=== PATIENT | male | born 1970 | race Caucasian/White ===

== ENCOUNTER 2016-07-14 07:37 | Emergency (ER) | payer BC ==
[2016-07-14 07:48] VITALS: BP 127/83
--- NOTE | 2016-07-14 09:12 | EDM.PDOC ---
ED HPI Trauma - General Chief Complaint: Lower Extremity Injury/Pain Stated Complaint: TOE INJURY Time Seen by Provider: 07/14/16 07:48 Source: Reports: Patient History Limitations: Reports: No limitations - History of Present Illness INITIAL COMMENTS - FREE TEXT/NARRATIVE: The patient presents with left 1st MTP pain. This has been going on for a few days. He said his knee was hurting also but that is better. He has a history of gout but his miloxicam is not working. He did not injure his toe. Occurred When: other (A few days ago) Occurred Where: home Method of Injury: unknown Severity: severe Pain/Injury Location: Reports: lower extremity, left (1st MTP joint) Consciousness: Reports: no loss of consciousness Associated Symptoms: Reports: no other symptoms Allergies/ADRs: Allergies peppermint Allergy (Verified 07/14/16 07:48) Airway Tightness Home Medications: Ambulatory Orders Adalimumab [Humira Pen Crohn-Uc-Hs Starter] 1 pen SUBCUT ASDIRECTED 07/14/16 [ Confirmed 07/14/16] Hydrocodone/Acetaminophen [Hydrocodon-Acetaminophen 5-325] 1 - 2 each PO Q6HR PRN #20 tablet 07/14/16 Meloxicam 7.5 mg PO DAILY 07/14/16 [Confirmed 07/14/16] Prednisone [IJD: predniSONE] 40 mg PO WITHBREAKFAST #10 tab 07/14/16 Past Medical History Musculoskeletal History: Reports: Other (see below) Other Musculoskeletal History: Ankylosing Spondylitis - Past Surgical History GI Surgical History: Reports: Bariatric procedure, Cholecystectomy, Other (see below) Other GI Surgeries/Procedures: gastric bypass 10 years ago Musculoskeletal Surgical History: Reports: None Social & Family History - Tobacco Use Smoking Status *Q: Current Every Day Smoker Years of Tobacco use: 36 Packs/Tins Daily: 0.5 Used Tobacco, but Quit: No Second Hand Smoke Exposure: No - Caffeine Use Caffeine Use: Reports: Coffee - Recreational Drug Use Recreational Drug Use: No Review of Systems - Review of Systems Review Of Systems: See Below Constitutional: Reports: no symptoms Eyes: Reports: no symptoms Ears: Reports: no symptoms Nose: Reports: no symptoms Mouth/Throat: Reports: no symptoms Respiratory: Reports: No Symptoms Cardiovascular: Reports: no symptoms GI/Abdominal: Reports: No symptoms Genitourinary: Reports: no symptoms Musculoskeletal: Reports: other (pain to 1st MTP) Trauma Exam - Physical Exam Exam: See Below Exam Limited By: No limitations General Appearance: Reports: alert, no apparent distress Head: Reports: atraumatic, normocephalic Ears: Reports: normal external exam Nose: Reports: normal inspection Respiratory Exam: Reports: no respiratory distress Extremities: Reports: other (Pain upon palpation, redness and edema to the left 1st MTP. Good sensation and capillary refill distally.) Course - Vital Signs Last Recorded V/S: Last Vital Signs Temp 97.4 F 07/14/16 07:45 Pulse 116 H 07/14/16 07:45 Resp 20 07/14/16 07:45 BP 127/83 07/14/16 07:45 Pulse Ox 97 07/14/16 07:45 - Orders/Labs/Meds Orders: Active Orders 24 hr Category Date Time Status Foot Comp Min 3V Lt [CR] Stat Exams 07/14/16 08:00 Taken Labs: Laboratory Tests 07/14/16 Range/Units 08:16 Uric Acid 9.2 H (3.5-7.2) mg/dL - Re-Assessments/Exams Free Text/Narrative Re-Assessment/Exam: 07/14/16 09:08 His x-ray shows some arthritis to the left 1st MTP joint. His uric acid is 9.2. I will get him on some steroids and some hydrocodone for pain. 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 Take the hydrocodone 1 to 2 pills every 6 hours as needed for pain. Please return if you are worse. - My Orders Last 24 Hours: My Active Orders 07/14/16 08:00 Foot Comp Min 3V Lt [CR] Stat - Assessment/Plan Last 24 Hours: My Active Orders 07/14/16 08:00 Foot Comp Min 3V Lt [CR] Stat
[2016-07-14] MEDS ORDERED: Acetaminophen/HYDROcodone 325-5 MG Tab ONE (09:46)
--- NOTE | 2016-07-15 07:43 | CR ---
Left foot: Four views of the left foot were obtained. Comparison: No previous study. Diffuse soft tissue swelling is identified. Degenerative change is noted within the first MTP joint with articular irregularity, joint space narrowing and mild osteophytes. Small bony density seen off the distal tuft of the first digit felt to be incidental. No acute fracture or other bony abnormality is appreciated. Impression: 1. Degenerative change within the first MTP joint. 2. Soft tissue swelling and other incidental findings. Diagnostic code #2
== END 2016-07-14 09:22 | disposition home or self-care (01) ==
LOC: JD.ED 07:37
DX: M10.472 Other secondary gout, left ankle and foot (principal); F17.210 Nicotine dependence, cigarettes, uncomplicated; Z98.84 Bariatric surgery status; Z90.49 Acquired absence of other specified parts of digestive tract; Z79.899 Other long term (current) drug therapy
CPT/HCPCS: 36415; 73630; 84550; 99284; A9270; 99283

== ENCOUNTER 2016-08-10 18:55 | Emergency (ER) | payer BC ==
[2016-08-10 19:21] VITALS: BP 138/83
--- NOTE | 2016-08-10 19:35 | EDM.PDOC ---
ED HPI LOWER BACK PAIN/INJURY - General Chief Complaint: Back Pain or Injury Stated Complaint: FELL OFF A LADDER Time Seen by Provider: 08/10/16 19:00 Source of Information: Reports: Patient History Limitations: Reports: No limitations - History of Present Illness INITIAL COMMENTS - FREE TEXT/NARRATIVE: This is a 46 year old male. He was about 5 feet up on a ladder cleaning his gutters when he lost his balance and fell off the ladder. He states he believes that his buttocks hit first and he now has increase pain the the lower lumbar area. He took one of his pain pills but now he is having muscle spasms. He has ankylosing spondylitis and has a fuzed cervical spine and partially fuzed lumbar spine. No pain down his legs has been noted. He denies upper back pain or more neck pain. Not hit his head and no LOC. Abrasion on his left lateral ankle and left elbow. No chest or abdomen pain. - Related Data Allergies/ADRs: Allergies Allergy/AdvReac Type Severity Reaction Status Date / Time peppermint Allergy Airway Verified 07/14/16 07:48 Tightness Home Meds: Home Meds Adalimumab [Humira Pen Crohn-Uc-Hs Starter] 1 pen SUBCUT ASDIRECTED 07/14/16 [ History] Hydrocodone/Acetaminophen [Hydrocodon-Acetaminophen 5-325] 1 - 2 each PO Q6HR PRN #20 tablet 07/14/16 [Rx] Hydrocodone/Acetaminophen [Hydrocodon-Acetaminophen 5-325] 1 - 2 each PO Q6HR PRN #5 tablet 07/14/16 [Rx] Meloxicam 7.5 mg PO DAILY 07/14/16 [History] Prednisone [IJD: predniSONE] 40 mg PO WITHBREAKFAST #10 tab 07/14/16 [Rx] Cyclobenzaprine [Flexeril] 10 mg PO TID PRN #20 tablet 08/10/16 [Rx] Hydrocodone/Acetaminophen [Hydrocodon-Acetaminophen 5-325] 1 each PO Q6H PRN # 20 tablet 08/10/16 [Rx] Past Medical History Musculoskeletal History: Reports: Other (see below) Other Musculoskeletal History: Ankylosing Spondylitis - Past Surgical History GI Surgical History: Reports: Bariatric procedure, Cholecystectomy, Other (see below) Other GI Surgeries/Procedures: gastric bypass 10 years ago Musculoskeletal Surgical History: Reports: None Social & Family History - Tobacco Use Smoking Status *Q: Current Every Day Smoker Years of Tobacco use: 36 Packs/Tins Daily: 0.5 Used Tobacco, but Quit: No Second Hand Smoke Exposure: No - Caffeine Use Caffeine Use: Reports: Coffee - Recreational Drug Use Recreational Drug Use: No ED ROS GENERAL - Review of Systems Review Of Systems: See Below Constitutional: Denies: fever, chills HEENT: Reports: No symptoms Respiratory: Reports: No Symptoms Cardiovascular: Reports: No symptoms Endocrine: Reports: no symptoms GI/Abdominal: Reports: No symptoms Musculoskeletal: Reports: other (As per HPI) Skin: Reports: no symptoms Neurological: Reports: No Symptoms Psychiatric: Reports: No symptoms Hematologic/Lymphatic: Reports: no symptoms ED EXAM,LOWER BACK PAIN/INJURY - Physical Exam Exam: See Below Exam Limited By: No limitations General Appearance: alert, WD/WN, mild distress Eye Exam: bilateral eye: normal inspection Ears: normal external exam Nose: normal inspection Throat/Mouth: Normal lips, Normal voice Head: atraumatic, other (No trauma noted to the scalp or face.) Respiratory/Chest: other (Limited ROM due to fuzing but he denies and new pain or discomfort from the fall) Cardiovascular: regular rate, rhythm, no murmur GI/Abdominal: soft. No: tender Back Exam: other (Midline lumbar soreness noted and paraspinal muscle tightness and tenderness noted. The left SI joint is mildly tender but not the right SI joint. Denies buttocks pain.) Extremities: normal inspection, normal range of motion, other (Left elbow slight abrasion and left lateral ankle. Left elbow has limited ROM extension due to previous injury and surgery.) Neurological: alert, normal mood/affect Psychiatric: normal affect, normal mood Skin Exam: Warm, Dry Course - Vital Signs Last Recorded V/S: Last Vital Signs Temp 98.0 F 08/10/16 19:17 Pulse 95 08/10/16 19:17 Resp 16 08/10/16 19:17 BP 138/83 08/10/16 19:17 Pulse Ox 95 08/10/16 19:17 - Orders/Labs/Meds Orders: Active Orders 24 hr Category Date Time Status Lumbar Spine 2 or 3V [CR] Stat Exams 08/10/16 19:29 Taken - Radiology Interpretation Free Text/Narrative:: X-ray of the lumbar spine shows fusion from L2-S1 ankylosing spondylitis I do not see any obvious fractures or fractures of the fusing, no compression fractures noted - Re-Assessments/Exams Free Text/Narrative Re-Assessment/Exam: 08/10/16 20:31 I spoke to the patient regarding the x-ray results. I'll provide something for pain and spasms. He is to follow up with fitter hand Departure - Departure Time of Disposition: 20:31 Disposition: Home, Self-Care 01 Condition: fair Clinical Impression: Lumbar paraspinal muscle spasm, Ankylosing spondylitis lumbar region Lumbar strain Qualifiers: Encounter type: initial encounter Qualified Code(s): S39.012A - Strain of muscle, fascia and tendon of lower back, initial encounter Prescriptions: Cyclobenzaprine [Flexeril] 10 mg PO TID PRN #20 tablet PRN Reason: Spasms Hydrocodone/Acetaminophen [Hydrocodon-Acetaminophen 5-325] 1 each PO Q6H PRN # 20 tablet PRN Reason: Pain Instructions: Muscle Strain, [id number], Back Pain, Adult, [id number] Forms: ED Department Discharge Additional Instructions: Use the medicine for pain and spasms as needed, use ice 20 minutes every couple of hours to the back to help with your back pain after about 2-3 days you can start using some heat as well, gentle activity and gentle movement of the lower back don't just lay in bed or sit in a chair since the back heals by movement, call your fitter hand on Friday in case he wants to see you sooner than your scheduled appointment, return to the ER if needed - My Orders Last 24 Hours: My Active Orders 08/10/16 19:29 Lumbar Spine 2 or 3V [CR] Stat - Assessment/Plan Last 24 Hours: My Active Orders 08/10/16 19:29 Lumbar Spine 2 or 3V [CR] Stat
--- NOTE | 2016-08-12 10:34 | CR ---
Lumbar spine: AP, lateral and coned-down lateral view centered to the lumbosacral junction were obtained. Comparison: No previous study. Disc space narrowing noted at L2-L3, L3-L4, L4-L5 and L5-S1. Disc calcification seen within the L2-L3 through L4-L5 discs. Mild disc space narrowing noted within T10-T11 and T11-T12 as well as posteriorly in T12-L1 and L1-L2. Diffuse osteophytes are seen. No acute fracture or abnormal subluxation is seen. Surgical clips are scattered within the abdomen. Impression: 1. Diffuse degenerative change. Previous abdominal surgery. 2. Nothing acute is identified on three-view lumbar spine study. Diagnostic code #2
== END 2016-08-10 20:59 | disposition home or self-care (01) ==
LOC: JD.ED 18:55
DX: S39.012A Strain of muscle, fascia and tendon of lower back, initial encounter (principal); S50.312A Abrasion of left elbow, initial encounter; S90.512A Abrasion, left ankle, initial encounter; M45.6 Ankylosing spondylitis lumbar region; F17.210 Nicotine dependence, cigarettes, uncomplicated; Z91.09 Other allergy status, other than to drugs and biological substances; Z79.899 Other long term (current) drug therapy; Z98.84 Bariatric surgery status; Z90.49 Acquired absence of other specified parts of digestive tract; W11.XXXA Fall on and from ladder, initial encounter
CPT/HCPCS: 72100; 72100-26; 99283; 99284

== ENCOUNTER 2016-12-29 18:39 | Emergency (ER) | payer BC ==
[2016-12-29 18:47] VITALS: BP 148/96
--- NOTE | 2016-12-29 19:05 | EDM.PDOC ---
ED HPI GENERAL MEDICAL PROBLEM - General Chief Complaint: Lower Extremity Injury/Pain Stated Complaint: FEET SWOLLEN Time Seen by Provider: 12/29/16 18:54 Source of Information: Reports: Patient History Limitations: Reports: No Limitations - History of Present Illness INITIAL COMMENTS - FREE TEXT/NARRATIVE: The patient presents with pain, edema and redness to his right ankle. This started a few days ago. He has a history of gout. He denies any injury and he has no fever or chills. Onset: Gradual Duration: Day(s): Location: Reports: Lower Extremity, Right (ankle) Quality: Reports: Sharp Severity: Severe Improves with: Reports: Immobilization Worsens with: Reports: Movement Associated Symptoms: Reports: No Other Symptoms Right Feet Pain Score (Numeric/FACES): 10 - Related Data Allergies Allergy/AdvReac Type Severity Reaction Status Date / Time peppermint Allergy Airway Verified 07/14/16 07:48 Tightness Home Meds: Home Meds Adalimumab [Humira Pen Crohn-Uc-Hs Starter] 1 pen SUBCUT ASDIRECTED 07/14/16 [ History] Meloxicam 7.5 mg PO DAILY 07/14/16 [History] Cyclobenzaprine [Flexeril] 10 mg PO TID PRN #20 tablet 08/10/16 [Rx] Hydrocodone/Acetaminophen [Hydrocodon-Acetaminophen 5-325] 1 each PO Q6H PRN # 20 tablet 08/10/16 [Rx] Hydrocodone/Acetaminophen [Hydrocodon-Acetaminophen 5-325] 1 - 2 each PO Q6HR PRN #20 tablet 12/29/16 [Rx] Prednisone [IJD: predniSONE] 40 mg PO WITHBREAKFAST #10 tab 12/29/16 [Rx] Past Medical History Musculoskeletal History: Reports: Other (See Below) Other Musculoskeletal History: Ankylosing Spondylitis - Past Surgical History GI Surgical History: Reports: Bariatric Procedure, Cholecystectomy Musculoskeletal Surgical History: Reports: Shoulder Surgery Social & Family History - Tobacco Use Smoking Status *Q: Current Every Day Smoker Years of Tobacco use: 30 Packs/Tins Daily: 1 Used Tobacco, but Quit: No Second Hand Smoke Exposure: No - Caffeine Use Caffeine Use: Reports: Coffee, Soda, Tea - Recreational Drug Use Recreational Drug Use: No Review of Systems - Review of Systems Review Of Systems: See Below Constitutional: Reports: No Symptoms Ears: Reports: No Symptoms Nose: Reports: No Symptoms Mouth/Throat: Reports: No Symptoms Respiratory: Reports: No Symptoms Cardiovascular: Reports: No Symptoms GI/Abdominal: Reports: No Symptoms Genitourinary: Reports: No Symptoms Musculoskeletal: Reports: Other (Right ankle pain and swelling) ED EXAM, GENERAL - Physical Exam Exam: See Below Exam Limited By: No Limitations General Appearance: Alert, No Apparent Distress Ears: Normal External Exam Nose: Normal Inspection Head: Atraumatic, Normocephalic Neck: Normal Inspection Respiratory/Chest: No Respiratory Distress Extremities: Other (Right ankle has mild pain upon palpatin, mild elvin and mild erythema. Good sensation and pulses distally.) Course - Vital Signs Last Recorded V/S: Last Vital Signs Temp 97.6 F 12/29/16 18:46 Pulse 110 H 12/29/16 18:46 Resp 18 12/29/16 18:46 BP 148/96 H 12/29/16 18:46 Pulse Ox 96 12/29/16 18:46 - Re-Assessments/Exams Free Text/Narrative Re-Assessment/Exam: 12/29/16 19:02 The patient has gout. He was put on prednisone and hydrocodone last time and it worked. I will continue the same therapy. Departure - Departure Time of Disposition: 19:05 Disposition: Home, Self-Care 01 Condition: Good Clinical Impression: Gout attack Qualifiers: Gout site: ankle Gout etiology: other secondary cause Laterality: right Qualified Code(s): M10.471 - Other secondary gout, right ankle and foot - Discharge Information Prescriptions: Hydrocodone/Acetaminophen [Hydrocodon-Acetaminophen 5-325] 1 - 2 each PO Q6HR PRN #20 tablet PRN Reason: Pain Prednisone [IJD: predniSONE] 40 mg PO WITHBREAKFAST #10 tab Referrals: Michelle Ron PA [Physician Computer Systems Consultant] - 1 Week Additional Instructions: Take the prednisone 40mgs daily for 5 days. Take the hydrocodone 1 to 2 pills every 6 hours as needed for pain. Please return if you get worse or follow up with Michelle Ron within 1 week.
== END 2016-12-29 19:10 | disposition home or self-care (01) ==
LOC: JD.ED 18:39 → SUPCPDRO 18:39 → JD.ED 19:10
DX: M10.471 Other secondary gout, right ankle and foot (principal); F17.210 Nicotine dependence, cigarettes, uncomplicated
CPT/HCPCS: 99283

== ENCOUNTER 2018-05-25 08:27 | Emergency (ER) | payer BC ==
[2018-05-25] MEDS ORDERED: HYDROmorphone 1 MG/ML Syringe IVPUSH STA (08:53)
[2018-05-25] MEDS ORDERED: Ondansetron 4 MG/2 ML SDV IVPUSH ONE (08:53)
--- NOTE | 2018-05-25 08:56 | EDM.PDOC ---
ED HPI GENERAL MEDICAL PROBLEM - General Chief Complaint: Abdominal Pain Stated Complaint: RT SIDE PAIN Time Seen by Provider: 05/25/18 08:39 Source of Information: Reports: Patient, RN Notes Reviewed History Limitations: Reports: No Limitations - History of Present Illness INITIAL COMMENTS - FREE TEXT/NARRATIVE: The patient states that he developed right lower quadrant abdominal pain around 02:00 this morning, as he was getting up. Initially, the pain was dull, but has become sharp. It does not radiate. He has not identified any modifiers. He has had nausea, but no emesis. No recent fever, constipation, diarrhea, or urinary symptoms. No prior similar symptoms. The patient states that he thought that his pain might be due to constipation, therefore he took 2 laxatives, some prune juice, and his usual medications. The patient's last oral solid food was around 18:00 last night. The patient does not have a PCP. The patient's Manager Online is Dr. Mcdonald (?sp). Treatments PROFESSOR IN FAMILY STUDIES: Reports: Other (see below) Other Treatments PROFESSOR IN FAMILY STUDIES: laxitive with prune juice Right Lower Abdomen Pain Score (Numeric/FACES): 7 - Related Data Allergies Allergy/AdvReac Type Severity Reaction Status Date / Time peppermint Allergy Airway Verified 05/25/18 08:34 Tightness Home Meds: Home Meds Adalimumab [Humira Pen Crohn-Uc-Hs Starter] 1 pen SUBCUT ASDIRECTED 07/14/16 [ History] Meloxicam 7.5 mg PO DAILY 07/14/16 [History] Cyclobenzaprine [Flexeril] 10 mg PO TID PRN #20 tablet 08/10/16 [Rx] B12/Levomefolate Calcium/B-6 [Folbic Rf Tablet] 1 tab PO DAILY 05/25/18 [History ] Ciprofloxacin [Cipro XR] 1 tab PO Q12H #20 tab.er 05/25/18 [Rx] Past Medical History Musculoskeletal History: Reports: Back Pain, Chronic (2 ankylosing spondylitis) Endocrine/Metabolic History: Reports: Obesity/BMI 30+ - Past Surgical History GI Surgical History: Reports: Bariatric Procedure (Gastric bypass 10/27/2006), Cholecystectomy (2007) Musculoskeletal Surgical History: Reports: Other (See Below) (Bilaeral 5th finger pinning. Rt elbow surgery.) Social & Family History - Family History Family Medical History: Noncontributory - Tobacco Use Smoking Status *Q: Current Every Day Smoker Years of Tobacco use: 38 Packs/Tins Daily: 0.5 Packs/Tins Daily Comment: Down from 1 ppd - Caffeine Use Caffeine Use: Reports: Coffee - Alcohol Use Alcohol Use History: Yes Alcohol Use Frequency: Socially - Recreational Drug Use Recreational Drug Use: No - Living Situation & Occupation Living situation: Reports: Single, with Family Occupation: Employed ([employer]) ED ROS GENERAL - Review of Systems Review Of Systems: ROS reveals no pertinent complaints other than HPI. ED EXAM, GI/ABD - Physical Exam Exam: See Below Exam Limited By: No Limitations General Appearance: Alert, WD/WN, No Apparent Distress Eyes: Bilateral: Normal Appearance, EOMI Ears: Normal External Exam, Hearing Grossly Normal Nose: Normal Inspection Throat/Mouth: Normal Inspection, Normal Lips, Normal Voice, No Airway Compromise Head: Atraumatic, Normocephalic Neck: Normal Inspection, Full Range of Motion Respiratory/Chest: No Respiratory Distress, Lungs Clear, Normal Breath Sounds, No Accessory Muscle Use Cardiovascular: Normal Peripheral Pulses, Regular Rate, Rhythm, No Gallop, No JVD, No Murmur, No Rub GI/Abdominal Exam: Soft, No Organomegaly, No Distention, No Abnormal Bruit, No Mass, Tender (Right lower quadrant only. Nontender elsewhere.), Abnormal Bowel Sounds (decreased), Other (Obese) (Male) Exam: Deferred Rectal (Males) Exam: Prostate Normal, Deferred Back Exam: Normal Inspection, Full Range of Motion. No: CVA Tenderness (L), CVA Tenderness (R) Extremities: Normal Inspection, Normal Range of Motion, No Pedal Edema, Normal Capillary Refill Neurological: Alert, Oriented, Normal Cognition, No Motor/Sensory Deficits Psychiatric: Normal Affect Skin Exam: Warm, Dry, Intact, Normal Color, No Rash Course - Vital Signs Last Recorded V/S: Last Vital Signs Temp 36.6 C 05/25/18 08:39 Pulse 72 05/25/18 11:24 Resp 16 05/25/18 11:24 BP 141/91 H 05/25/18 11:24 Pulse Ox 99 05/25/18 11:24 - Orders/Labs/Meds Labs: Laboratory Tests 05/25/18 05/25/18 05/25/18 Range/Units 08:55 08:57 08:57 WBC 14.44 H (4.23-9.07) K/mm3 RBC 4.59 L (4.63-6.08) M/mm3 Hgb 14.9 (13.7-17.5) gm/L Hct 45.8 (40.1-51.0) % MCV 99.8 H (79.0-92.2) fl MCH 32.5 H (25.7-32.2) pg MCHC 32.5 (32.2-35.5) g/dl RDW Std Deviation 47.3 H (35.1-43.9) fL Plt Count 380 H (163-337) K/mm3 MPV 8.5 L (9.4-12.3) fl Neutrophils % (Manual) 80 H (40-60) % Band Neutrophils % 0 (0-10) % Lymphocytes % (Manual) 16 L (20-40) % Atypical Lymphs % 0 % Monocytes % (Manual) 3 (2-10) % Eosinophils % (Manual) 1 (0.8-7.0) % Basophils % (Manual) 0 L (0.2-1.2) Toxic Granulation 1+ slight Platelet Estimate Adequate Plt Morphology Comment Normal Polychromasia 1+ slight Macrocytosis Few RBC Morph Comment Not Reportable Sodium 140 (136-145) mEq/L Potassium 3.9 (3.5-5.1) mEq/L Chloride 103 (98-107) mEq/L Carbon Dioxide 30 (21-32) mEq/L Anion Gap 10.9 (5-15) BUN 10 (7-18) mg/dL Creatinine 1.0 (0.7-1.3) mg/dL Est Cr Clr Drug Dosing 88.38 mL/min Estimated GFR (MDRD) > 60 (>60) mL/min BUN/Creatinine Ratio 10.0 L (14-18) Glucose 117 H (74-106) mg/dL Calcium 9.4 (8.5-10.1) mg/dL Total Bilirubin 0.6 (0.2-1.0) mg/dL AST 44 H (15-37) U/L ALT 83 H (16-63) U/L Alkaline Phosphatase 89 (46-116) U/L Total Protein 8.1 (6.4-8.2) g/dl Albumin 2.7 L (3.4-5.0) g/dl Globulin 5.4 gm/dL Albumin/Globulin Ratio 0.5 L (1-2) Urine Color Yellow (Yellow) Urine Appearance Clear (Clear) Urine pH 6.5 (5.0-8.0) Ur Specific [place] 1.015 (1.005-1.030) Urine Protein 1+ H (Negative) Urine Glucose (UA) Negative (Negative) Urine Ketones Negative (Negative) Urine Occult Blood 1+ H (Negative) Urine Nitrite Positive H (Negative) Urine Bilirubin Negative (Negative) Urine Urobilinogen 0.2 (0.2-1.0) Ur Leukocyte Esterase 2+ H (Negative) Urine RBC 5-10 H (0-5) /hpf Urine WBC 20-30 H (0-5) /hpf Urine WBC Clumps Few (NOT SEEN) /hpf Ur Epithelial Cells 0-5 (0-5) /hpf Urine Bacteria Moderate H (FEW) /hpf Urine Mucus Not seen (FEW) /hpf Meds: Medications Discontinued Medications Generic Name Dose Route Start Last Admin Trade Name Freq PRN Reason Stop Dose Admin Diatrizoate Meglum/Diatrizoate Sod 120 ml 05/25/18 09:17 05/25/18 10:14 Gastrografin 37% PO 05/25/18 09:18 90 ml ONETIME ONE Administration Hydromorphone HCl 1 mg 05/25/18 08:53 05/25/18 11:03 Dilaudid IVPUSH 05/25/18 08:54 Not Given ONETIME STA Sodium Chloride 1,000 mls @ 150 mls/hr 05/25/18 09:00 05/25/18 09:15 Normal Saline IV 150 mls/hr ASDIRECTED DAVID Administration Iopamidol 100 ml 05/25/18 09:17 05/25/18 10:14 Isovue-300 (61%) IVPUSH 05/25/18 09:18 100 ml ONETIME ONE Administration Ondansetron HCl 4 mg 05/25/18 08:53 05/25/18 09:15 Zofran IVPUSH 05/25/18 08:54 4 mg ONETIME ONE Administration Sodium Chloride 10 ml 05/25/18 09:17 05/25/18 10:14 Saline Flush FLUSH 10 ml ONETIME PRN Administration IV FLUSH - Re-Assessments/Exams Free Text/Narrative Re-Assessment/Exam: 05/25/18 08:55 Given the location of the patient's pain and tenderness, appendicitis is of concern. I have ordered blood work, a urinalysis, and a CT scan of the abdomen and pelvis with oral and IV contrast. In the meantime, the patient will receive IV Dilaudid, IV Zofran, and IV fluid. 05/25/18 10:50 CT of the abdomen and pelvis with oral and IV contrast is read by Dr. Mcgill as: 1. Inflammatory change around a cyst located posterolateral to the mid right kidney. As mentioned above, findings could represent rupture of the renal cyst with surrounding inflammatory change. Differential also includes pyelonephritis around this cyst. 2. Other incidental cysts are seen within both kidneys as well as liver. 3. Other incidental findings as noted above. 05/25/18 11:02 Test results discussed with the patient. The patient's urinalysis is consistent with a UTI. A urine culture has been ordered. In concert with his CT findings, it appears that the patient has right-sided pyelonephritis. The patient would prefer to start on less expensive oral ciprofloxacin every 12 hours, as opposed to more expensive Levaquin once daily. A prescription will be sent to the [facility]. I will refer him to Dr. Mayela Dacosta, to follow-up this coming , 05/28/2018, in order to check on the urine culture results , to make sure that he is on the correct antibiotic. In the meantime, I would like the patient to stay adequately hydrated, and he has been instructed to return to the ED, should his symptoms worsen. The patient will be provided with a note for work for today. Departure - Departure Time of Disposition: 11:04 Disposition: Home, Self-Care 01 Condition: Fair Clinical Impression: Pyelonephritis, acute - Discharge Information *PRESCRIPTION DRUG MONITORING PROGRAM REVIEWED*: Not Applicable *COPY OF PRESCRIPTION DRUG MONITORING REPORT IN PATIENT AFSHIN: Not Applicable Prescriptions: Ciprofloxacin [Cipro XR] 1 tab PO Q12H #20 tab.er Instructions: Pyelonephritis, Adult, [id number] Referrals: Mayela Dacosta MD [Physician] - PCP,None [Primary Care Provider] - Forms: ED Department Discharge, ED Return to Work/School Form Additional Instructions: You were seen in the emergency room for lower right abdominal pain and nausea. Workup in the ER included blood work, a urinalysis, and a CT scan of your abdomen and pelvis with oral and IV contrast. Your workup found that you have an infection in your right kidney, a condition known as pyelonephritis. A prescription for the antibiotic ciprofloxacin has been sent to the [facility], located at [address] [place] [address]. Take one tablet of ciprofloxacin every 12 hours, starting as soon as possible, as prescribed. Finish the entire prescription unless told otherwise by a doctor. Stay adequately hydrated. It does not really matter what kind of fluid you drink. Follow-up with Dr. Mayela Dacosta, or one of the other providers in the clinic, this coming , 05/28/2018, to check on your urine culture results, to make sure that you are on the correct antibiotic. A note for work has been provided to you. If any other problems, including worsening pain, or the development of fever or vomiting, please do not hesitate to return to the ER.
[2018-05-25] MEDS ORDERED: Sodium Chloride 0.9% 1,000 ML IV SCH (09:00)
[2018-05-25] MEDS ORDERED: Sodium Chloride 0.9% 10 ML Syringe FLUSH PRN (09:17)
[2018-05-25] MEDS ORDERED: Diatrizoate Meglumine/Diatrizoate Sodium 37% 120 ML Bottle PO ONE (09:17)
[2018-05-25] MEDS ORDERED: Iopamidol 612 MG/ML 100 ML Bottle IVPUSH ONE (09:17)
--- NOTE | 2018-05-25 10:38 | CT ---
CT abdomen and pelvis Technique: Multiple axial sections were obtained from above the dome of the diaphragm inferiorly through the pubic symphysis. Intravenous contrast and oral contrast was utilized. Delayed images also obtained through the abdomen and pelvis. Comparison: No previous abdominal imaging. Findings: Inflammatory change is identified posterolateral to the mid right kidney. This is adjacent to a cyst. Uncertain if this finding represents inflammatory change from rupturing of the cyst or whether this represents pyelonephritis around the cyst. No extravasation of any contrast is seen. Delayed images show contrast throughout the ureters into the bladder. Other scattered cysts are seen within both kidneys. Small low density findings are seen within the liver most likely due to cysts. Largest finding within the liver measures 1.1 cm and has Hounsfield unit unit measurements of a cyst. Spleen appears within normal limits. Visualized lung bases show nothing acute. Slightly prominent adrenal glands are seen most likely incidental. Previous stomach surgery is noted. Surgical clips are seen from prior cholecystectomy. Pancreas is within normal limits. Aorta shows mild atherosclerotic calcification without aneurysm. No retroperitoneal adenopathy or mesenteric abnormalities are seen. Appendix is seen and is normal in size. No pelvic mass or adenopathy is seen. Several surgical clips are seen within the anterior abdominal wall. Bone window settings were reviewed which show diffuse degenerative change within the spine. Impression: 1. Inflammatory change around a cyst located posterolateral to the mid right kidney. As mentioned above, findings could represent rupture of the renal cyst with surrounding inflammatory change. Differential also includes pyelonephritis around this cyst. 2. Other incidental cysts are seen within both kidneys as well as liver. 3. Other incidental findings as noted above. Diagnostic code #3
[2018-05-25 11:24] VITALS: BP 141/91
== END 2018-05-25 11:23 | disposition home or self-care (01) ==
LOC: JD.ED 08:27
DX: N10 Acute pyelonephritis (principal); F17.210 Nicotine dependence, cigarettes, uncomplicated; Z88.8 Allergy status to other drugs, medicaments and biological substances; Z79.899 Other long term (current) drug therapy
CPT/HCPCS: 36415; 74177; 80053; 81001; 85007; 85027; 87086; 87088; 87186; 96361; 96374; 99284; J2405; J7040; Q9963; Q9967

== ENCOUNTER 2018-06-19 08:34 | Emergency (ER) | payer BC ==
[2018-06-19 08:56] VITALS: BP 174/101
[2018-06-19] MEDS ORDERED: Sodium Chloride 0.9% 1,000 ML IV STA (09:03)
[2018-06-19] MEDS ORDERED: Sodium Chloride 0.9% 10 ML Syringe FLUSH PRN (09:03)
[2018-06-19] MEDS ORDERED: Ondansetron 4 MG/2 ML SDV IVPUSH ONE (09:03)
--- NOTE | 2018-06-19 09:28 | EDM.PDOC ---
ED HPI GENERAL MEDICAL PROBLEM - General Chief Complaint: Abdominal Pain Stated Complaint: ABDOMINAL PAIN Time Seen by Provider: 06/19/18 08:52 Source of Information: Reports: Patient History Limitations: Reports: No Limitations - History of Present Illness INITIAL COMMENTS - FREE TEXT/NARRATIVE: The patient presents with lower abdominal pain and flank pain. He was here a couple weeks ago for the same. He was found to have pyelonephritis. He was put on an antibiotic and was doing well until a couple days ago. He started having symptoms again. He denies any dysuria or frequency. He has ankylosing spondylitis and is on Alessia injections. He was found to have some inflammation of the right kidney and a cyst. Pyelonephritis and ruptures cyst were possibilities. His UA showed a UTI so he was diagnosed with a UTI and pyelonephritis. He has nausea and vomiting and as well. He has no cough, congestion, runny nose, chest pain or shortness of breath. Onset: Gradual Duration: Day(s): Location: Reports: Abdomen (and flank pain) Quality: Reports: Sharp Severity: Moderate Improves with: Reports: None Worsens with: Reports: None Associated Symptoms: Reports: Nausea/Vomiting. Denies: Cough, Fever/Chills, Headaches, Shortness of Breath Lower Abdomen Pain Score (Numeric/FACES): 6 - Related Data Allergies Allergy/AdvReac Type Severity Reaction Status Date / Time peppermint Allergy Airway Verified 06/19/18 08:52 Tightness Home Meds: Home Meds Adalimumab [Humira Pen Crohn-Uc-Hs Starter] 1 pen SUBCUT ASDIRECTED 07/14/16 [ History] Meloxicam 7.5 mg PO DAILY 07/14/16 [History] Cyclobenzaprine [Flexeril] 10 mg PO TID PRN #20 tablet 08/10/16 [Rx] B12/Levomefolate Calcium/B-6 [Folbic Rf Tablet] 1 tab PO DAILY 05/25/18 [History ] Allopurinol [Zyloprim] 300 mg PO DAILY 06/19/18 [History] Hydrocodone/Acetaminophen [Hydrocodon-Acetaminophen 5-325] 1 - 2 each PO Q6HR PRN #20 tablet 06/19/18 [Rx] Past Medical History Gastrointestinal History: Reports: Cholelithiasis Musculoskeletal History: Reports: Back Pain, Chronic Other Musculoskeletal History: Ankylosing Spondylitis Endocrine/Metabolic History: Reports: Obesity/BMI 30+ - Past Surgical History GI Surgical History: Reports: Bariatric Procedure, Cholecystectomy Musculoskeletal Surgical History: Reports: Other (See Below) Social & Family History - Family History Family Medical History: Noncontributory - Tobacco Use Smoking Status *Q: Former Smoker Years of Tobacco use: 40 Packs/Tins Daily: 0.7 Used Tobacco, but Quit: No - Caffeine Use Caffeine Use: Reports: Coffee, Soda - Recreational Drug Use Recreational Drug Use: No - Living Situation & Occupation Living situation: Reports: Single, with Family Occupation: Employed ([employer]) ED ROS GENERAL - Review of Systems Review Of Systems: See Below Constitutional: Reports: No Symptoms HEENT: Reports: No Symptoms Respiratory: Reports: No Symptoms Cardiovascular: Reports: No Symptoms Endocrine: Reports: No Symptoms GI/Abdominal: Reports: Abdominal Pain, Nausea, Vomiting : Reports: Flank Pain Musculoskeletal: Reports: Back Pain Skin: Reports: No Symptoms ED EXAM, RENAL/ - Physical Exam Exam: See Below Exam Limited By: No Limitations General Appearance: Alert, No Apparent Distress Ears: Normal External Exam Nose: Normal Inspection Head: Atraumatic, Normocephalic Neck: Normal Inspection Respiratory/Chest: No Respiratory Distress, Lungs Clear, Normal Breath Sounds Cardiovascular: Regular Rate, Rhythm, No Edema, No Murmur GI/Abdominal: Soft, No Organomegaly, No Mass, Tender (Mild tenderness to the right abdomen) Back Exam: CVA Tenderness (R) Extremities: Normal Inspection Neurological: Alert, Oriented, No Motor/Sensory Deficits Course - Vital Signs Last Recorded V/S: Last Vital Signs Temp 98.1 F 06/19/18 08:53 Pulse 103 H 06/19/18 08:53 Resp 16 06/19/18 08:53 BP 174/101 H 06/19/18 08:53 Pulse Ox 95 06/19/18 08:53 - Orders/Labs/Meds Orders: Active Orders 24 hr Category Date Time Status Peripheral IV Care [RC] . DIRECTED Care 06/19/18 09:03 Active Sodium Chloride 0.9% [Saline Flush] Med 06/19/18 09:03 Active 10 ml FLUSH ASDIRECTED PRN ED Antiemetic Medication Reflex [OM.PC] Stat Oth 06/19/18 09:03 Ordered Peripheral IV Insertion Adult [OM.PC] Stat Oth 06/19/18 09:03 Ordered Medication Orders Sodium Chloride (Saline Flush) 10 ml FLUSH ASDIRECTED PRN PRN Reason: Keep Vein Open Last Admin: 06/19/18 09:24 Dose: 10 ml Labs: Laboratory Tests 06/19/18 06/19/18 06/19/18 Range/Units 09:19 09:19 09:50 WBC 5.44 (4.23-9.07) K/mm3 RBC 4.88 (4.63-6.08) M/mm3 Hgb 15.9 (13.7-17.5) gm/L Hct 48.3 (40.1-51.0) % MCV 99.0 H (79.0-92.2) fl MCH 32.6 H (25.7-32.2) pg MCHC 32.9 (32.2-35.5) g/dl RDW Std Deviation 51.4 H (35.1-43.9) fL Plt Count 194 (163-337) K/mm3 MPV 8.9 L (9.4-12.3) fl Neut % (Auto) 60.6 (34.0-67.9) % Lymph % (Auto) 26.3 (21.8-53.1) % [place] % (Auto) 7.9 (5.3-12.2) % Eos % (Auto) 4.6 (0.8-7.0) Baso % (Auto) 0.6 (0.1-1.2) % Neut # (Auto) 3.30 (1.78-5.38) K/mm3 Lymph # (Auto) 1.43 (1.32-3.57) K/mm3 [place] # (Auto) 0.43 (0.30-0.82) K/mm3 Eos # (Auto) 0.25 (0.04-0.54) K/mm3 Baso # (Auto) 0.03 (0.01-0.08) K/mm3 Sodium 142 (136-145) mEq/L Potassium 4.0 (3.5-5.1) mEq/L Chloride 106 (98-107) mEq/L Carbon Dioxide 27 (21-32) mEq/L Anion Gap 13.0 (5-15) BUN 13 (7-18) mg/dL Creatinine 1.0 (0.7-1.3) mg/dL Est Cr Clr Drug Dosing 88.38 mL/min Estimated GFR (MDRD) > 60 (>60) mL/min BUN/Creatinine Ratio 13.0 L (14-18) Glucose 113 H (74-106) mg/dL Calcium 8.9 (8.5-10.1) mg/dL Total Bilirubin 1.1 H (0.2-1.0) mg/dL AST 25 (15-37) U/L ALT 45 (16-63) U/L Alkaline Phosphatase 84 (46-116) U/L C-Reactive Protein 0.3 (<1.0) mg/dL Total Protein 7.8 (6.4-8.2) g/dl Albumin 3.4 (3.4-5.0) g/dl Globulin 4.4 gm/dL Albumin/Globulin Ratio 0.8 L (1-2) Lipase 201 (73-393) U/L Urine Color Yellow (Yellow) Urine Appearance Clear (Clear) Urine pH 6.5 (5.0-8.0) Ur Specific [place] 1.025 (1.005-1.030) Urine Protein 1+ H (Negative) Urine Glucose (UA) Negative (Negative) Urine Ketones Negative (Negative) Urine Occult Blood 1+ H (Negative) Urine Nitrite Negative (Negative) Urine Bilirubin Negative (Negative) Urine Urobilinogen 1.0 (0.2-1.0) Ur Leukocyte Esterase Negative (Negative) Urine RBC 5-10 H (0-5) /hpf Urine WBC 0-5 (0-5) /hpf Ur Epithelial Cells 0-5 (0-5) /hpf Urine Bacteria Not seen (FEW) /hpf Urine Mucus Not seen (FEW) /hpf Meds: Medications Generic Name Dose Route Start Last Admin Trade Name Freq PRN Reason Stop Dose Admin Sodium Chloride 10 ml 06/19/18 09:03 06/19/18 09:24 Saline Flush FLUSH 10 ml ASDIRECTED PRN Administration Keep Vein Open Discontinued Medications Generic Name Dose Route Start Last Admin Trade Name Freq PRN Reason Stop Dose Admin Sodium Chloride 1,000 mls @ 1,000 mls/hr 06/19/18 09:03 06/19/18 09:24 Normal Saline IV 06/19/18 10:02 1,000 mls/hr .BOLUS STA Administration Ondansetron HCl 4 mg 06/19/18 09:03 06/19/18 09:24 Zofran IVPUSH 06/19/18 09:04 4 mg ONETIME ONE Administration - Re-Assessments/Exams Free Text/Narrative Re-Assessment/Exam: 06/19/18 09:30 I ordered an IV NS 1L bolus, zofran 4mg IV, labs and UA. I do not feel I need to do a repeat CT. 06/19/18 12:11 His CBC and CMP look good. His lipase was normal. His UA shows no UTI but he does have blood. I feel I need to do a repeat CT now because I do not have a definitive diagnosis. The CT showed inflammatory change around the right kidney seen on prior CT exam has resolved in the interim from prior study. Multiple nonobstructing renal calculi within both kidneys. Cyst within the right kidney as an incidental note. No ureteral calculi or hydronephrosis is seen. Other incidental findings. Nothing acute is appreciated on noncontrast CT study of the abdomen and pelvis. I am not finding a cause for his pain at this time. This could be related to his chronic pain from his ankylosing spondylitis. Departure - Departure Time of Disposition: 12:25 Disposition: Home, Self-Care 01 Condition: Good Clinical Impression: Flank pain Abdominal pain Qualifiers: Abdominal location: lower abdomen, unspecified Qualified Code(s): R10.30 - Lower abdominal pain, unspecified - Discharge Information *PRESCRIPTION DRUG MONITORING PROGRAM REVIEWED*: No *COPY OF PRESCRIPTION DRUG MONITORING REPORT IN PATIENT ASFHIN: No Prescriptions: Hydrocodone/Acetaminophen [Hydrocodon-Acetaminophen 5-325] 1 - 2 each PO Q6HR PRN #20 tablet PRN Reason: Pain Referrals: PCP,None [Primary Care Provider] - Forms: ED Department Discharge, ED Return to Work/School Form Additional Instructions: Take tylenol or motrin for pain. If that does not help take the hydrocodone. Let your doctor know what has been going on. Please return if you are worse. - My Orders Last 24 Hours: My Active Orders 06/19/18 09:03 Peripheral IV Care [RC] . DIRECTED Sodium Chloride 0.9% [Saline Flush] 10 ml FLUSH ASDIRECTED PRN ED Antiemetic Medication Reflex [OM.PC] Stat Peripheral IV Insertion Adult [OM.PC] Stat - Assessment/Plan Last 24 Hours: My Active Orders 06/19/18 09:03 Peripheral IV Care [RC] . DIRECTED Sodium Chloride 0.9% [Saline Flush] 10 ml FLUSH ASDIRECTED PRN ED Antiemetic Medication Reflex [OM.PC] Stat Peripheral IV Insertion Adult [OM.PC] Stat
--- NOTE | 2018-06-19 11:43 | CT ---
CT abdomen and pelvis Technique: Multiple axial sections were obtained from above the dome of the diaphragm inferiorly through the pubic symphysis. Intravenous and oral contrast not utilized. Study has been performed as a ureteral stone protocol. Comparison: Previous CT abdomen and pelvis exam of 05/25/18. Findings: Multiple renal calculi are seen within both kidneys. Largest stone within the right central kidney measuring about 1.9 cm in size. Calcifications are felt to be fairly stable from previous exam. Inflammatory change seen around the right kidney on prior study has resolved in the interim. Cyst is noted off the right kidney measuring 2.9 cm. No ureteral dilatation or ureteral stone is seen. Visualized lung bases show nothing acute. Small hiatal hernia is noted. Previous gastric surgery is noted. Small cyst is noted within the right lobe of the liver measuring approximately 1.2 cm in size. No additional abnormality is appreciated within the liver. Spleen appears within normal limits. Adrenal glands are somewhat prominent in size appear stable and felt to be incidental. Pancreas is within normal limits. Previous cholecystectomy noted. Abdominal aorta shows atherosclerotic calcification without aneurysm. No retroperitoneal adenopathy or mesenteric abnormalities are seen. Multiple surgical clips are seen within the abdominal wall. Appendix is seen which is normal. No pelvic mass or adenopathy is seen. No free fluid or inflammatory change is seen. Scattered diverticuli are seen within the descending and sigmoid colon without findings of diverticulitis. No free fluid or inflammatory change is seen. Bone window settings were reviewed which show multiple levels of fusion presumably from previous surgery. No acute osseous abnormality is appreciated. Impression: 1. Inflammatory change around the right kidney seen on prior CT exam has resolved in the interim from prior study. 2. Multiple nonobstructing renal calculi within both kidneys. Cyst within the right kidney as an incidental note. 3. No ureteral calculi or hydronephrosis is seen. 4. Other incidental findings. Nothing acute is appreciated on noncontrast CT study of the abdomen and pelvis. Diagnostic code #3
== END 2018-06-19 12:30 | disposition home or self-care (01) ==
LOC: JD.ED 08:34
DX: R10.30 Lower abdominal pain, unspecified (principal); Z87.891 Personal history of nicotine dependence; Z79.899 Other long term (current) drug therapy; Z91.018 Allergy to other foods
CPT/HCPCS: 36415; 74176; 80053; 81001; 83690; 85025; 86140; 96361; 96374; 99284; J2405; J7040

== ENCOUNTER 2019-08-06 07:54 | Emergency (ER) | payer BC, MEDICAID ==
[2019-08-06 08:06] VITALS: BP 125/74; PULSE 111
[2019-08-06] MEDS ORDERED: Sodium Chloride 0.9% 10 ML Syringe FLUSH PRN ×2 (08:18→09:05)
[2019-08-06] MEDS ORDERED: Metoclopramide 10 MG/2 ML SDV IVPUSH ONE (08:18)
[2019-08-06] MEDS ORDERED: HYDROmorphone 1 MG/ML Syringe IVPUSH ONE (08:19)
[2019-08-06] MEDS ORDERED: Sodium Chloride 0.9% 1,000 ML IV SCH (08:30)
[2019-08-06] MEDS ORDERED: Albuterol 6.7 GM Inhaler INH ONE (08:40)
--- NOTE | 2019-08-06 08:45 | EDM.PDOC ---
ED HPI GENERAL MEDICAL PROBLEM - General Chief Complaint: Abdominal Pain Stated Complaint: CONSTIPATION Time Seen by Provider: 08/06/19 08:09 Source of Information: Reports: Patient History Limitations: Reports: No Limitations - History of Present Illness INITIAL COMMENTS - FREE TEXT/NARRATIVE: The patient presents with abdominal pain and constipation. He says he has not had a good bowel movement for about 1 1/2 weeks. He has had some loose stools at times. He has no nausea or vomiting but he has no appetite and he is eating much less. He is drinking plenty of fluids. He still has his appendix. He had pneumonia back in April and was admitted to [facility] in [place] for about 3 weeks. Since then he has had shortness of breath and some fluid in his lungs. He has no fever, chills or cough. He has no chest pain. He has no dysuria or hematuria. Onset: Gradual Duration: Week(s): (1.5) Location: Reports: Abdomen Quality: Reports: Other (cramping) Severity: Moderate Improves with: Reports: None Worsens with: Reports: None Associated Symptoms: Denies: Chest Pain, Cough, Fever/Chills, Headaches, Nausea/ Vomiting, Shortness of Breath Abdomen Pain Score (Numeric/FACES): 4 - Related Data Allergies Allergy/AdvReac Type Severity Reaction Status Date / Time peppermint Allergy Severe Airway Verified 08/06/19 08:06 Tightness Home Meds: Home Meds Meloxicam 7.5 mg PO DAILY 07/14/16 [History] B12/Levomefolate Calcium/B-6 [Folbic Rf Tablet] 1 tab PO DAILY 05/25/18 [History ] Famotidine [Pepcid] 20 mg PO BID 08/06/19 [History] Losartan [Cozaar] 100 mg PO DAILY 08/06/19 [History] Magnesium Oxide [Magnesium] 400 mg PO BID 08/06/19 [History] Potassium Chloride 20 meq PO DAILY #30 tablet.er 08/06/19 [Rx] Tamsulosin HCl [Flomax] 0.4 mg PO DAILY 08/06/19 [History] Past Medical History Cardiovascular History: Reports: Hypertension Gastrointestinal History: Reports: Cholelithiasis Musculoskeletal History: Reports: Back Pain, Chronic Other Musculoskeletal History: Ankylosing Spondylitis Endocrine/Metabolic History: Reports: Obesity/BMI 30+ - Infectious Disease History Infectious Disease History: Reports: Pertussis (Whooping Cough) - Past Surgical History GI Surgical History: Reports: Bariatric Procedure, Cholecystectomy Social & Family History - Family History Family Medical History: Noncontributory - Tobacco Use Smoking Status *Q: Current Every Day Smoker Years of Tobacco use: 39 Packs/Tins Daily: 0.5 - Caffeine Use Caffeine Use: Reports: Coffee, Soda - Recreational Drug Use Recreational Drug Use: No - Living Situation & Occupation Living situation: Reports: Single, with Family Occupation: Employed ([employer]) ED ROS GENERAL - Review of Systems Review Of Systems: See Below Constitutional: Reports: No Symptoms HEENT: Reports: No Symptoms Respiratory: Reports: No Symptoms Cardiovascular: Reports: No Symptoms Endocrine: Reports: No Symptoms GI/Abdominal: Reports: Abdominal Pain, Constipation, Nausea, Vomiting. Denies: Diarrhea : Reports: No Symptoms Musculoskeletal: Reports: No Symptoms ED EXAM, GI/ABD - Physical Exam Exam: See Below Exam Limited By: No Limitations General Appearance: Alert, No Apparent Distress Ears: Normal External Exam Nose: Normal Inspection Head: Atraumatic, Normocephalic Neck: Normal Inspection Respiratory/Chest: No Respiratory Distress, Wheezing (Moderate) Cardiovascular: Regular Rate, Rhythm, No Edema, No Murmur GI/Abdominal Exam: Soft, No Organomegaly, No Mass, Tender (Moderate tenderness to the right lower abdomen) Course - Vital Signs Last Recorded V/S: Last Vital Signs Temp 97.0 F 08/06/19 08:03 Pulse 111 H 08/06/19 08:03 Resp 16 08/06/19 08:03 BP 125/74 08/06/19 08:03 Pulse Ox 85 L 08/06/19 09:09 - Orders/Labs/Meds Orders: Active Orders 24 hr Category Date Time Status Oxygen Therapy, ED [RC] ASDIRECTED Care 08/06/19 09:09 Active Peripheral IV Care [RC] . DIRECTED Care 08/06/19 08:18 Active RT Post Treatment Assessment [RC] Click to Edit Care 08/06/19 08:40 Active RT Pre-Treatment Assessment [RC] Click to Edit Care 08/06/19 08:40 Active Potassium Chloride [KCl 10 MEQ in Water 100 ML] 10 meq Med 08/06/19 09:45 Active Premix Bag 1 bag IV Q1H Sodium Chloride 0.9% [Normal Saline] 1,000 ml Med 08/06/19 08:30 Active IV ASDIRECTED Sodium Chloride 0.9% [Saline Flush] Med 08/06/19 08:18 Active 10 ml FLUSH ASDIRECTED PRN Sodium Chloride 0.9% [Saline Flush] Med 08/06/19 09:05 Active 10 ml FLUSH ONETIME PRN ED Antiemetic Medication Reflex [OM.PC] Stat Ot 08/06/19 08:18 Ordered Peripheral IV Insertion Adult [OM.PC] Stat Ot 08/06/19 08:18 Ordered Medication Orders Sodium Chloride (Normal Saline) 1,000 mls @ 125 mls/hr IV ASDIRECTED DAVID Last Infusion: 08/06/19 10:13 Dose: 300 mls/hr Admin: 08/06/19 08:38 Dose: 125 mls/hr Potassium Chloride 10 meq/ (Premix) 100 mls @ 100 mls/hr IV Q1H DAVID Stop: 08/06/19 11:44 Last Admin: 08/06/19 09:51 Dose: 100 mls/hr Sodium Chloride (Saline Flush) 10 ml FLUSH ASDIRECTED PRN PRN Reason: Keep Vein Open Last Admin: 08/06/19 08:39 Dose: 10 ml Sodium Chloride (Saline Flush) 10 ml FLUSH ONETIME PRN PRN Reason: Keep Vein Open Last Admin: 08/06/19 09:29 Dose: 10 ml Labs: Laboratory Tests 08/06/19 08/06/19 08/06/19 Range/Units 08:35 08:35 09:40 WBC 6.51 (4.23-9.07) K/mm3 RBC 4.53 L (4.63-6.08) M/mm3 Hgb 14.7 (13.7-17.5) gm/dl Hct 42.4 (40.1-51.0) % MCV 93.6 H D (79.0-92.2) fl MCH 32.5 H (25.7-32.2) pg MCHC 34.7 (32.2-35.5) g/dl RDW Std Deviation 57.3 H (35.1-43.9) fL Plt Count 194 (163-337) K/mm3 MPV 10.0 (9.4-12.3) fl Neut % (Auto) 73.4 H (34.0-67.9) % Lymph % (Auto) 16.7 L (21.8-53.1) % Cam[place] % (Auto) 8.1 (5.3-12.2) % Eos % (Auto) 1.1 (0.8-7.0) Baso % (Auto) 0.5 (0.1-1.2) % Neut # (Auto) 4.78 (1.78-5.38) K/mm3 Lymph # (Auto) 1.09 L (1.32-3.57) K/mm3 [place] # (Auto) 0.53 (0.30-0.82) K/mm3 Eos # (Auto) 0.07 (0.04-0.54) K/mm3 Baso # (Auto) 0.03 (0.01-0.08) K/mm3 Sodium 139 (136-145) mEq/L Potassium 2.1 L* D (3.5-5.1) mEq/L Chloride 98 (98-107) mEq/L Carbon Dioxide 21 (21-32) mEq/L Anion Gap 22.1 H (5-15) BUN 26 H (7-18) mg/dL Creatinine 2.4 H D (0.7-1.3) mg/dL Est Cr Clr Drug Dosing 34.04 mL/min Estimated GFR (MDRD) 29 (>60) mL/min BUN/Creatinine Ratio 10.8 L (14-18) Glucose 131 H (74-106) mg/dL Calcium 6.6 L D (8.5-10.1) mg/dL Total Bilirubin 1.6 H (0.2-1.0) mg/dL AST 125 H (15-37) U/L ALT 200 H (16-63) U/L Alkaline Phosphatase 157 H (46-116) U/L Total Protein 6.6 (6.4-8.2) g/dl Albumin 2.5 L (3.4-5.0) g/dl Globulin 4.1 gm/dL Albumin/Globulin Ratio 0.6 L (1-2) Lipase 419 H (73-393) U/L Urine Color Brenda H (Yellow) Urine Appearance Slt cloudy H (Clear) Urine pH 5.5 (5.0-8.0) Ur Specific Hurley 1.025 (1.005-1.030) Urine Protein 2+ H (Negative) Urine Glucose (UA) Negative (Negative) Urine Ketones 1+ H (Negative) Urine Occult Blood 3+ H (Negative) Urine Nitrite Negative (Negative) Urine Bilirubin 3+ H (Negative) Urine Urobilinogen 1.0 (0.2-1.0) Ur Leukocyte Esterase Trace H (Negative) Urine RBC 40-50 H (0-5) /hpf Urine WBC 0-5 (0-5) /hpf Ur Squamous Epith Cells 0-5 (0-5) /hpf Urine Bacteria Not seen (FEW) /hpf Urine Mucus Not seen (FEW) /hpf Meds: Medications Generic Name Dose Route Start Last Admin Trade Name Freq PRN Reason Stop Dose Admin Sodium Chloride 1,000 mls @ 125 mls/hr 08/06/19 08:30 08/06/19 10:13 Normal Saline IV 300 mls/hr ASDIRECTED DAVID Infusion Potassium Chloride 10 meq/ 100 mls @ 100 mls/hr 08/06/19 09:45 08/06/19 09:51 Premix IV 08/06/19 11:44 100 mls/hr Q1H DAVID Administration Sodium Chloride 10 ml 08/06/19 08:18 08/06/19 08:39 Saline Flush FLUSH 10 ml ASDIRECTED PRN Administration Keep Vein Open Sodium Chloride 10 ml 08/06/19 09:05 08/06/19 09:29 Saline Flush FLUSH 10 ml ONETIME PRN Administration Keep Vein Open Discontinued Medications Generic Name Dose Route Start Last Admin Trade Name Freq PRN Reason Stop Dose Admin Albuterol 0 gm 08/06/19 08:40 08/06/19 08:56 Proventil Hfa INH 08/06/19 08:41 2 puff ONETIME ONE Administration Diatrizoate Meglum/Diatrizoate Sod 90 ml 08/06/19 09:29 08/06/19 09:30 Gastrografin 37% PO 08/06/19 09:30 90 ml ONETIME ONE Administration Hydromorphone HCl 1 mg 08/06/19 08:19 08/06/19 08:39 Dilaudid IVPUSH 08/06/19 08:20 1 mg ONETIME ONE Administration Hydromorphone HCl 0.5 mg 08/06/19 10:04 08/06/19 10:11 Dilaudid IVPUSH 08/06/19 10:05 0.5 mg ONETIME ONE Administration Iopamidol 100 ml 08/06/19 09:05 08/06/19 09:29 Isovue-300 (61%) IVPUSH 08/06/19 09:06 100 ml ONETIME ONE Administration Metoclopramide HCl 10 mg 08/06/19 08:18 08/06/19 08:38 Reglan IVPUSH 08/06/19 08:19 10 mg ONETIME ONE Administration - Re-Assessments/Exams Free Text/Narrative Re-Assessment/Exam: 08/06/19 08:44 I ordered an IV NS at 125ml/hr, reglan 10mg IV, dilaudid 1mg IV, labs, UA and a CT of his abdomen and pelvis. 08/06/19 10:45 His CBC looks good. His K was low at 2.1. I ordered 20meq of KCl IV. His creatinine is elevated at 2.4. His GFR is elevated at 29. His glucose is 131. His calcium is 6.6. His total bili is 1.6. His AST is elevated at 125. His ALT is elevated at 200. His alk phos is elevated at 157. His lipase was elevated at 419. His UA is negative for UTI. His CT shows diffuse and severe fatty infiltration within the liver. Liver is diffusely enlarged. Masslike nodule within the inferior right lobe. Uncertain if this represents focal fatty sparing or represents actual liver mass. I believe that this is most likely due to focal fatty sparing. Liver findings are an interval change from previous exam. Bowel wall thickening within the sigmoid colon with differential including localized kyphosis versus muscular thickening from chronic diverticulosis. Other findings believed to be incidental as described above. 08/06/19 11:04 I ordered a CXR and it looked good. The patient had a bowel movement and he feels better. His BP did go down and I gave him a fluid bolus. His BP is better now. I feel he should be admitted. He does not agree and would like to go home. He has calcium at home that he did not take today. I will put him on some potassium. He also has oxygen at home. He can take the inhaler to use at home. Departure - Departure Time of Disposition: 11:10 Disposition: Home, Self-Care 01 Condition: Good Clinical Impression: Hypokalemia, Hypocalcemia, Renal insufficiency Abdominal pain Qualifiers: Abdominal location: lower abdomen, unspecified Qualified Code(s): R10.30 - Lower abdominal pain, unspecified Reactive airway disease Qualifiers: Asthma severity: mild Asthma persistence: intermittent Asthma complication type : with acute exacerbation Qualified Code(s): J45.21 - Mild intermittent asthma with (acute) exacerbation Hypotension Qualifiers: Hypotension type: other hypotension type Qualified Code(s): I95.89 - Other hypotension - Discharge Information *PRESCRIPTION DRUG MONITORING PROGRAM REVIEWED*: Not Applicable *COPY OF PRESCRIPTION DRUG MONITORING REPORT IN PATIENT AFSHIN: Not Applicable Prescriptions: Potassium Chloride 20 meq PO DAILY #30 tablet.er Referrals: Carlos Hoffmann Jr, MD [Primary Care Provider] - 1 Week Forms: ED Department Discharge Additional Instructions: Take your medication as prescribed. Take the potassium daily. Drink plenty of fluids. Use the inhaler 2 puffs every 4 to 6 hours as needed for shortness of breath or wheezing. Use your oxygen as needed. Please return if you are worse. Follow up with your doctor within a week. Sepsis Event Note - Evaluation Sepsis Screening Result: No Definite Risk - Focused Exam Vital Signs: Vital Signs Temp Pulse Resp BP Pulse Ox Pulse Ox Pulse Ox 08/06/19 09:09 85 L 08/06/19 08:57 91 L 08/06/19 08:03 97.0 F 111 H 16 125/74 94 L Date Exam was Performed: 08/06/19 Time Exam was Performed: 11:04 - My Orders Last 24 Hours: My Active Orders 08/06/19 08:18 Peripheral IV Care [RC] . DIRECTED Sodium Chloride 0.9% [Saline Flush] 10 ml FLUSH ASDIRECTED PRN ED Antiemetic Medication Reflex [OM.PC] Stat Peripheral IV Insertion Adult [OM.PC] Stat 08/06/19 08:30 Sodium Chloride 0.9% [Normal Saline] 1,000 ml IV ASDIRECTED 08/06/19 08:40 RT Post Treatment Assessment [RC] Click to Edit RT Pre-Treatment Assessment [RC] Click to Edit 08/06/19 09:05 Sodium Chloride 0.9% [Saline Flush] 10 ml FLUSH ONETIME PRN 08/06/19 09:09 Oxygen Therapy, ED [RC] ASDIRECTED 08/06/19 09:45 Potassium Chloride [KCl 10 MEQ in Water 100 ML] 10 meq Premix Bag 1 bag IV Q1H - Assessment/Plan Last 24 Hours: My Active Orders 08/06/19 08:18 Peripheral IV Care [RC] . DIRECTED Sodium Chloride 0.9% [Saline Flush] 10 ml FLUSH ASDIRECTED PRN ED Antiemetic Medication Reflex [OM.PC] Stat Peripheral IV Insertion Adult [OM.PC] Stat 08/06/19 08:30 Sodium Chloride 0.9% [Normal Saline] 1,000 ml IV ASDIRECTED 08/06/19 08:40 RT Post Treatment Assessment [RC] Click to Edit RT Pre-Treatment Assessment [RC] Click to Edit 08/06/19 09:05 Sodium Chloride 0.9% [Saline Flush] 10 ml FLUSH ONETIME PRN 08/06/19 09:09 Oxygen Therapy, ED [RC] ASDIRECTED 08/06/19 09:45 Potassium Chloride [KCl 10 MEQ in Water 100 ML] 10 meq Premix Bag 1 bag IV Q1H
[2019-08-06] MEDS ORDERED: Iopamidol 612 MG/ML 100 ML Bottle IVPUSH ONE (09:05)
[2019-08-06] MEDS ORDERED: Diatrizoate Meglumine/Diatrizoate Sodium 37% 120 ML Bottle PO ONE (09:29)
[2019-08-06] MEDS: Potassium Chloride 10 MEQ in Premix Bag 1 BAG IV SCH ×2 (09:51→11:06)
--- NOTE | 2019-08-06 09:54 | CT ---
CT abdomen and pelvis Technique: Multiple axial sections were obtained from above the dome of the diaphragm inferiorly through the pubic symphysis. Intravenous and oral contrast was utilize. Comparison: Prior CT abdomen and pelvis study of 06/19/18. Findings: Visualized lung bases show nothing acute. Diffuse and severe fatty infiltration is seen throughout the liver. Liver is diffusely enlarged. Focal masslike density is noted within the right lower lobe of the liver measuring 3.5 cm. Uncertain if this represents neoplastic nodule or represents masslike area of focal fatty sparing. Contrast reflux is noted into the esophagus. Spleen appears normal. Adrenal glands show no nodule. Pancreas appears within normal limits. Surgical clips are noted from prior cholecystectomy. Kidneys show several nonobstructing calculi on both sides. Exophytic cyst is noted within the mid left kidney measuring about 2.5 cm. Smaller presumed cyst is noted within the upper pole of the left kidney measuring about 9 mm in size which is too small to confirm by Hounsfield unit measurements. Aorta shows atherosclerotic change without aneurysm. Atherosclerotic change continues into the iliac vessels. No retroperitoneal adenopathy or mesenteric abnormalities are seen. Diverticuli are seen within the sigmoid colon. Diverticuli noted within portions of the descending colon. Bowel wall thickening is noted within the sigmoid colon. Uncertain if this is due to localized colitis or represents bowel wall thickening from chronic diverticulosis. Appendix not visualized with certainty. Bone window settings were reviewed which shows scattered degenerative change within the spine. Impression: 1. Diffuse and severe fatty infiltration within the liver. Liver is diffusely enlarged. 2. Masslike nodule within the inferior right lobe. Uncertain if this represents focal fatty sparing or represents actual liver mass. I believe that this is most likely due to focal fatty sparing. Liver findings are an interval change from previous exam. 3. Bowel wall thickening within the sigmoid colon with differential including localized kyphosis versus muscular thickening from chronic diverticulosis. 4. Other findings believed to be incidental as described above. Diagnostic code #3 This report was dictated in MDT
[2019-08-06] MEDS ORDERED: HYDROmorphone 0.5 MG/0.5 ML Syringe IVPUSH ONE (10:04)
--- NOTE | 2019-08-06 10:45 | CR ---
Chest: 2 views of the chest were obtained. Comparison: No prior chest imaging is available. Heart size and mediastinum are normal. Lungs show minimal linear density within the left base or lingula compatible with discoid atelectasis or scar. Lungs otherwise are clear. Bony structures are grossly intact. Impression: 1. Finding within the left lower lung or lingula believed to be incidental. 2. Nothing acute is seen. Diagnostic code #2 This report was dictated in MDT
== END 2019-08-06 12:40 | disposition home or self-care (01) ==
LOC: JD.ED 07:54
DX: N28.9 Disorder of kidney and ureter, unspecified (principal); I95.89 Other hypotension; J45.21 Mild intermittent asthma with (acute) exacerbation; E87.6 Hypokalemia; E83.51 Hypocalcemia; I10 Essential (primary) hypertension; E66.9 Obesity, unspecified; F17.210 Nicotine dependence, cigarettes, uncomplicated; Z90.89 Acquired absence of other organs; Z68.41 Body mass index [BMI] 40.0-44.9, adult; Z91.018 Allergy to other foods; Z79.899 Other long term (current) drug therapy
CPT/HCPCS: 36415; 71046; 74177; 80053; 81001; 83690; 85025; 94640; 96361; 96365; 99284; A9270; J1170; J2765; J3480; J7030; Q9963; Q9967

== ENCOUNTER 2019-10-04 10:01 | Emergency (ER) | payer MEDICAID ==
[2019-10-04 10:15] VITALS: BP 120/76; PULSE 105
[2019-10-04] MEDS ORDERED: Metoclopramide 10 MG/2 ML SDV IVPUSH ONE (10:39)
[2019-10-04] MEDS ORDERED: HYDROmorphone 1 MG/ML Syringe IVPUSH ONE ×3 (10:39→14:38)
--- NOTE | 2019-10-04 10:43 | EDM.PDOC ---
ED HPI GENERAL MEDICAL PROBLEM - General Chief Complaint: Abdominal Pain Stated Complaint: ABDOMINAL PAIN Time Seen by Provider: 10/04/19 10:38 Source of Information: Reports: Patient History Limitations: Reports: No Limitations - History of Present Illness INITIAL COMMENTS - FREE TEXT/NARRATIVE: 49-year-old male presents to the ED with diffuse left upper quadrant abdominal cramping colicky pain which radiates towards his left flank. He states he awoke around 0400 hrs. this morning to void and shortly thereafter started to develop cramping left upper quadrant abdominal pain that seemed almost cross over to the right side as well. He states now it seems to be more localized to the left upper quadrant and left flank. He has known renal lithiasis documented on previous CTs of the abdomen. He has cirrhosis of the liver with ascites and is currently on diuretics and medications for this including lactulose 3 times daily. Stools are chronically loose. He does not appreciate a constant need to void. He has not noticed any discoloration of his urine. Associated nausea due to the intensity of the pain but he is not vomited. He has not yet eaten today. Last meal was about 1830 hrs. last night. Onset: Today Onset Date: 10/04/19 Onset Time: 04:00 Duration: Hour(s):, Constant, Other (Constant with a strong colicky component. Currently rates the pain is 7 out of 10.) Location: Reports: Abdomen (Left upper quadrant of the abdomen with slight feeling of pressure sensation left testicle. Pain left flank.) Quality: Reports: Ache, Sharp, Stabbing, Other Severity: Severe (Stent pain with a strong colicky component) Improves with: Reports: None Worsens with: Reports: None Context: Reports: Other. Denies: Activity, Exercise, Lifting, Sick Contact, Trauma Associated Symptoms: Reports: Malaise (Chronically. Niccoli.), Nausea/Vomiting (Cristofer is occurrence after voiding about 0400 hrs. this morning.), Shortness of Breath. Denies: Fever/Chills ( Nausea without any vomiting.), Headaches, Rash, Seizure Treatments OUTREACH LIAISON: Reports: Other (see below) (None.) Bilateral Abdominal Pain Score (Numeric/FACES): 10 Bilateral Flank Pain Score (Numeric/FACES): 10 - Related Data Allergies Allergy/AdvReac Type Severity Reaction Status Date / Time peppermint Allergy Severe Airway Verified 10/04/19 10:15 Tightness Home Meds: Home Meds Cyanocobalamin/Folic AC/Vit B6 [Folbee] 1 tab PO DAILY 10/04/19 [History] Diclofenac Sodium [Diclo Gel] 2 gm TRDERM BID 10/04/19 [History] Famotidine 20 mg PO DAILY 10/04/19 [History] Famotidine [Pepcid] 20 mg PO BID 10/04/19 [History] Fluticasone Furoate [Flonase Sensimist] 2 spray RAY BID 10/04/19 [History] Ketoconazole/Hydrocortisone [Hydrocort 2.5%-Ketoconazole 2%] 1 dose TOP BID [History] Lactulose [Chronulac] 15 ml PO BID 10/04/19 [History] Loperamide [Imodium] 2 mg PO Q4HR 10/04/19 [History] Losartan [Cozaar] 100 mg PO DAILY 10/04/19 [History] Melatonin 3 mg PO BEDTIME 10/04/19 [History] Meloxicam 7.5 mg PO DAILY 10/04/19 [History] Metoclopramide [Reglan] 5 mg PO TID 10/04/19 [History] Mirtazapine 7.5 mg PO DAILY 10/04/19 [History] Ondansetron [Zofran ODT] 4 mg PO TID 10/04/19 [History] Pantoprazole Sodium [Protonix] 20 mg PO DAILY 10/04/19 [History] Potassium Chloride [Klor-Con M20] 20 meq PO DAILY 10/04/19 [History] Rifaximin [Xifaxan] 1,100 mg PO BID 10/04/19 [History] Tamsulosin [Flomax] 0.4 mg PO DAILY 10/04/19 [History] Past Medical History Cardiovascular History: Reports: Hypertension Gastrointestinal History: Reports: Cholelithiasis, Chronic Diarrhea, Cirrhosis (Lactulose. Diagnosed with cirrhosis of the liver approximately a month ago. She finished alcohol treatment rehab 5 days ago.), Other (See Below) Other Gastrointestinal History: liver fx Musculoskeletal History: Reports: Back Pain, Chronic Other Musculoskeletal History: Ankylosing Spondylitis Endocrine/Metabolic History: Reports: Obesity/BMI 30+ - Infectious Disease History Infectious Disease History: Reports: Pertussis (Whooping Cough) - Past Surgical History GI Surgical History: Reports: Bariatric Procedure, Cholecystectomy - History Comment History Comment: And was in alcohol rehab up until a week ago. Social & Family History - Family History Family Medical History: Noncontributory - Tobacco Use Smoking Status *Q: Current Every Day Smoker Years of Tobacco use: 38 Packs/Tins Daily: 0.5 - Caffeine Use Caffeine Use: Reports: Coffee - Recreational Drug Use Recreational Drug Use: No - Living Situation & Occupation Living situation: Reports: Single, with Family Occupation: Employed ([employer]) ED ROS GENERAL - Review of Systems Review Of Systems: See Below Constitutional: Reports: Malaise, Weakness, Fatigue, Decreased Appetite. Denies: Fever, Chills HEENT: Reports: No Symptoms Respiratory: Reports: Shortness of Breath. Denies: Wheezing, Pleuritic Chest Pain, Cough, Sputum, Hemoptysis Cardiovascular: Reports: Dyspnea on Exertion ( Niccoli in both lower extremities), Edema (Times when he gets up.), Lightheadedness. Denies: Chest Pain, Blood Pressure Problem, Claudication, Orthopnea Endocrine: Reports: Fatigue GI/Abdominal: Reports: Abdominal Pain (Left upper quadrant abdominal pain rating to the left flank. Diffuse abdominal discomfort due to ascites.), Diarrhea (Tools are very loose with a strong sense of urgency. He is on lactulose 3 times daily for cirrhosis of the liver.), Decreased Appetite, Nausea. Denies: Vomiting : Reports: Flank Pain. Denies: Dysuria (Flank pain), Frequency, Hematuria, Urgency Musculoskeletal: Reports: Back Pain (Diffuse chronic low back pain no worse than normal today.) Skin: Reports: Other (Mild jaundice.) Neurological: Reports: No Symptoms Psychiatric: Reports: No Symptoms Hematologic/Lymphatic: Reports: No Symptoms Immunologic: Reports: No Symptoms ED EXAM, RENAL/ - Physical Exam Exam: See Below Exam Limited By: No Limitations General Appearance: Alert, WD/WN, Moderate Distress, Other (Temperature is 36.1. Heart rate is 105. Respiratory to be 18 with O2 sats of 95% on room air. BP 120/76.) Eye Exam: Bilateral Eye: Normal Inspection, PERRL Throat/Mouth: Normal Lips, Other (Is dry and coated.) Head: Atraumatic, Normocephalic Neck: Normal Inspection, Supple, Non-Tender, Full Range of Motion. No: Lymphadenopathy (L), Lymphadenopathy (R), Thyromegaly Respiratory/Chest: No Respiratory Distress, Normal Breath Sounds, No Accessory Muscle Use, Rales (Note a few fine rales right lung base.) Cardiovascular: Normal Peripheral Pulses, Regular Rate, Rhythm, No Edema, No G allop, No Murmur, No Rub GI/Abdominal: No Abnormal Bruit, Distended (A fluid wave. Patient has obvious ascites. No At medusa.), Tender (Mild to moderate tenderness on deep palpation left upper quadrant of the abdomen.), Other (Ascites and abdominal girth limit ability to palpate solid organs. No obvious hepatomegaly on examination.). No: Guarding, Rigid, Rebound Back Exam: Normal Inspection, CVA Tenderness (L), Decreased Range of Motion (Due to abdominal girth and ascites limits ability to bend over.). No: CVA Tenderness (R) (I will.) Extremities: Pedal Edema (2-3+ pitting edema both lower extremities.), Other (Labs are taught but nontender.) Neurological: Alert, Oriented, CN II-XII Intact, Normal Cognition Psychiatric: Anxious Skin Exam: Warm, Dry, Intact, Normal Color, No Rash EKG INTERPRETATION EKG Date: 10/04/19 Time: 14:41 Rhythm: Other (Sinus tachycardia) Rate (Beats/Min): 109 Dyer: Normal P-Wave: Enlarged (Left atrial hypertrophy.) QRS: Other (RSR prime wave V1 and V2 normal variant. I disagree with ECG machine interpretation--no signs of ischemia present.) ST-T: Normal QT: Normal EKG Interpretation Comments: Borderline ECG Course - Vital Signs Last Recorded V/S: Last Vital Signs Temp 36.1 C 10/04/19 10:11 Pulse 105 H 10/04/19 10:11 Resp 18 10/04/19 10:11 BP 120/76 10/04/19 10:11 Pulse Ox 95 10/04/19 10:11 - Orders/Labs/Meds Orders: Active Orders 24 hr Category Date Time Status Blood Glucose Check, Bedside [RC] ONETIME Care 10/04/19 14:07 Active EKG Documentation Completion [RC] STAT Care 10/04/19 14:23 Active Dextrose 5%-Lactated Ringers 1,000 ml Med 10/04/19 10:45 Active IV ASDIRECTED Medication Orders Dextrose/Lactated Ringer's (Dextrose 5%-Lactated Ringers) 1,000 mls @ 100 mls/hr IV ASDIRECTED DAVID Last Admin: 10/04/19 10:58 Dose: 100 mls/hr Documented by: SABINE Labs: Laboratory Tests 10/04/19 10/04/19 10/04/19 Range/Units 10:30 10:30 10:30 WBC 10.00 H (4.23-9.07) K/mm3 RBC 3.60 L (4.63-6.08) M/mm3 Hgb 12.2 L D (13.7-17.5) gm/dl Hct 40.2 (40.1-51.0) % MCV 111.7 H D (79.0-92.2) fl MCH 33.9 H (25.7-32.2) pg MCHC 30.3 L (32.2-35.5) g/dl RDW Std Deviation 57.8 H (35.1-43.9) fL Plt Count 317 D (163-337) K/mm3 MPV 9.7 (9.4-12.3) fl Neut % (Auto) 80.9 H (34.0-67.9) % Lymph % (Auto) 13.9 L (21.8-53.1) % Divide % (Auto) 3.8 L (5.3-12.2) % Eos % (Auto) 0.9 (0.8-7.0) Baso % (Auto) 0.2 (0.1-1.2) % Neut # (Auto) 8.09 H (1.78-5.38) K/mm3 Lymph # (Auto) 1.39 (1.32-3.57) K/mm3 Divide # (Auto) 0.38 (0.30-0.82) K/mm3 Eos # (Auto) 0.09 (0.04-0.54) K/mm3 Baso # (Auto) 0.02 (0.01-0.08) K/mm3 Manual Slide Review Abnormal smear PT 11.4 (9.7-12.0) SECONDS INR 1.05 APTT (22-31) SECONDS Sodium 142 (136-145) mEq/L Potassium 3.8 D (3.5-5.1) mEq/L Chloride 108 H (98-107) mEq/L Carbon Dioxide 22 (21-32) mEq/L Anion Gap 15.8 H (5-15) BUN 9 (7-18) mg/dL Creatinine 0.8 D (0.7-1.3) mg/dL Est Cr Clr Drug Dosing 105.69 mL/min Estimated GFR (MDRD) > 60 (>60) mL/min BUN/Creatinine Ratio 11.3 L (14-18) Glucose 131 H (74-106) mg/dL Lactic Acid (0.4-2.0) mmol/L Calcium 8.4 L D (8.5-10.1) mg/dL Total Bilirubin 1.4 H (0.2-1.0) mg/dL AST 62 H (15-37) U/L ALT 57 (16-63) U/L Alkaline Phosphatase 132 H (46-116) U/L Total Protein 6.5 (6.4-8.2) g/dl Albumin 2.0 L (3.4-5.0) g/dl Globulin 4.5 gm/dL Albumin/Globulin Ratio 0.4 L (1-2) Lipase (73-393) U/L Urine Color (Yellow) Urine Appearance (Clear) Urine pH (5.0-8.0) Ur Specific [place] (1.005-1.030) Urine Protein (Negative) Urine Glucose (UA) (Negative) Urine Ketones (Negative) Urine Occult Blood (Negative) Urine Nitrite (Negative) Urine Bilirubin (Negative) Urine Urobilinogen (0.2-1.0) Ur Leukocyte Esterase (Negative) Urine RBC (0-5) /hpf Urine WBC (0-5) /hpf Ur Squamous Epith Cells (0-5) /hpf Urine Bacteria (FEW) /hpf Urine Mucus (FEW) /hpf SARS Virus RNA (PCR) (NEGATIVE) 10/04/19 10/04/19 10/04/19 Range/Units 10:30 10:30 13:40 WBC (4.23-9.07) K/mm3 RBC (4.63-6.08) M/mm3 Hgb (13.7-17.5) gm/dl Hct (40.1-51.0) % MCV (79.0-92.2) fl MCH (25.7-32.2) pg MCHC (32.2-35.5) g/dl RDW Std Deviation (35.1-43.9) fL Plt Count (163-337) K/mm3 MPV (9.4-12.3) fl Neut % (Auto) (34.0-67.9) % Lymph % (Auto) (21.8-53.1) % Divide % (Auto) (5.3-12.2) % Eos % (Auto) (0.8-7.0) Baso % (Auto) (0.1-1.2) % Neut # (Auto) (1.78-5.38) K/mm3 Lymph # (Auto) (1.32-3.57) K/mm3 Divide # (Auto) (0.30-0.82) K/mm3 Eos # (Auto) (0.04-0.54) K/mm3 Baso # (Auto) (0.01-0.08) K/mm3 Manual Slide Review PT (9.7-12.0) SECONDS INR APTT 26 (22-31) SECONDS Sodium (136-145) mEq/L Potassium (3.5-5.1) mEq/L Chloride (98-107) mEq/L Carbon Dioxide (21-32) mEq/L Anion Gap (5-15) BUN (7-18) mg/dL Creatinine (0.7-1.3) mg/dL Est Cr Clr Drug Dosing mL/min Estimated GFR (MDRD) (>60) mL/min BUN/Creatinine Ratio (14-18) Glucose (74-106) mg/dL Lactic Acid (0.4-2.0) mmol/L Calcium (8.5-10.1) mg/dL Total Bilirubin (0.2-1.0) mg/dL AST (15-37) U/L ALT (16-63) U/L Alkaline Phosphatase (46-116) U/L Total Protein (6.4-8.2) g/dl Albumin (3.4-5.0) g/dl Globulin gm/dL Albumin/Globulin Ratio (1-2) Lipase 141 (73-393) U/L Urine Color Yellow (Yellow) Urine Appearance Clear (Clear) Urine pH 5.5 (5.0-8.0) Ur Specific [place] > or = 1.030 (1.005-1.030) Urine Protein 1+ H (Negative) Urine Glucose (UA) Negative (Negative) Urine Ketones Negative (Negative) Urine Occult Blood Negative (Negative) Urine Nitrite Negative (Negative) Urine Bilirubin 1+ H (Negative) Urine Urobilinogen 0.2 (0.2-1.0) Ur Leukocyte Esterase Negative (Negative) Urine RBC Not seen (0-5) /hpf Urine WBC Not seen (0-5) /hpf Ur Squamous Epith Cells 0-5 (0-5) /hpf Urine Bacteria Rare (FEW) /hpf Urine Mucus Few (FEW) /hpf SARS Virus RNA (PCR) (NEGATIVE) 10/04/19 10/04/19 Range/Units 14:06 14:10 WBC (4.23-9.07) K/mm3 RBC (4.63-6.08) M/mm3 Hgb (13.7-17.5) gm/dl Hct (40.1-51.0) % MCV (79.0-92.2) fl MCH (25.7-32.2) pg MCHC (32.2-35.5) g/dl RDW Std Deviation (35.1-43.9) fL Plt Count (163-337) K/mm3 MPV (9.4-12.3) fl Neut % (Auto) (34.0-67.9) % Lymph % (Auto) (21.8-53.1) % Divide % (Auto) (5.3-12.2) % Eos % (Auto) (0.8-7.0) Baso % (Auto) (0.1-1.2) % Neut # (Auto) (1.78-5.38) K/mm3 Lymph # (Auto) (1.32-3.57) K/mm3 Divide # (Auto) (0.30-0.82) K/mm3 Eos # (Auto) (0.04-0.54) K/mm3 Baso # (Auto) (0.01-0.08) K/mm3 Manual Slide Review PT (9.7-12.0) SECONDS INR APTT (22-31) SECONDS Sodium (136-145) mEq/L Potassium (3.5-5.1) mEq/L Chloride (98-107) mEq/L Carbon Dioxide (21-32) mEq/L Anion Gap (5-15) BUN (7-18) mg/dL Creatinine (0.7-1.3) mg/dL Est Cr Clr Drug Dosing mL/min Estimated GFR (MDRD) (>60) mL/min BUN/Creatinine Ratio (14-18) Glucose (74-106) mg/dL Lactic Acid 1.9 (0.4-2.0) mmol/L Calcium (8.5-10.1) mg/dL Total Bilirubin (0.2-1.0) mg/dL AST (15-37) U/L ALT (16-63) U/L Alkaline Phosphatase (46-116) U/L Total Protein (6.4-8.2) g/dl Albumin (3.4-5.0) g/dl Globulin gm/dL Albumin/Globulin Ratio (1-2) Lipase (73-393) U/L Urine Color (Yellow) Urine Appearance (Clear) Urine pH (5.0-8.0) Ur Specific [place] (1.005-1.030) Urine Protein (Negative) Urine Glucose (UA) (Negative) Urine Ketones (Negative) Urine Occult Blood (Negative) Urine Nitrite (Negative) Urine Bilirubin (Negative) Urine Urobilinogen (0.2-1.0) Ur Leukocyte Esterase (Negative) Urine RBC (0-5) /hpf Urine WBC (0-5) /hpf Ur Squamous Epith Cells (0-5) /hpf Urine Bacteria (FEW) /hpf Urine Mucus (FEW) /hpf SARS Virus RNA (PCR) Negative (NEGATIVE) Meds: Medications Generic Name Dose Route Start Last Admin Trade Name Freq PRN Reason Stop Dose Admin Dextrose/Lactated Ringer's 1,000 mls @ 100 mls/hr 10/04/19 10:45 10/04/19 10:58 Dextrose 5%-Lactated Ringers IV 100 mls/hr ASDIRECTED DAVID Administration Discontinued Medications Generic Name Dose Route Start Last Admin Trade Name Freq PRN Reason Stop Dose Admin Hydromorphone HCl 1 mg 10/04/19 10:39 10/04/19 10:55 Dilaudid IVPUSH 10/04/19 10:40 1 mg ONETIME ONE Administration Hydromorphone HCl 1 mg 10/04/19 11:37 10/04/19 12:01 Dilaudid IVPUSH 10/04/19 11:38 1 mg ONETIME ONE Administration Hydromorphone HCl 1 mg 10/04/19 14:38 10/04/19 14:48 Dilaudid IVPUSH 10/04/19 14:39 1 mg ONETIME ONE Administration Hydromorphone HCl 0.5 mg 10/04/19 15:11 10/04/19 15:16 Dilaudid IVPUSH 10/04/19 15:12 0.5 mg ONETIME ONE Administration Ampicillin Sodium/Sulbactam 100 mls @ 200 mls/hr 10/04/19 14:03 10/04/19 14:21 Sodium 3 gm/ Sodium Chloride IV 10/04/19 14:32 200 mls/hr ONETIME ONE Administration Metoclopramide HCl 10 mg 10/04/19 10:39 10/04/19 10:53 Reglan IVPUSH 10/04/19 10:40 10 mg ONETIME ONE Administration - Radiology Interpretation Free Text/Narrative:: 49-year-old male presents to the ED with severe left upper quadrant colicky type pain rating to the left flank. Pain started acutely about 0400 hrs. after he had gotten up to void. Does not necessarily appreciate a constant need to void. He is nauseated due to the intensity of the pain but has not vomited. He has chronic diarrhea from lactulose that he takes for cirrhosis of the liver. Abdominally ,he is distended with fluid compatible with ascites. Moderate tenderness on deep palpation left upper quadrant of the abdomen exam. Mild left flank pain. Patient by history has been told that he has kidney stones from CT exam but he is never had a bout of renal colic. Plan IV D5 LR at 100 mils per hour. Given Dilaudid 1 mg IV with Reglan 10 mg IV for acute pain and nausea relief. Urinalysis to be collected if one is provided. He will have CT of the abdomen per renal protocol. - Re-Assessments/Exams Free Text/Narrative Re-Assessment/Exam: 10/04/19 11:27 CT of the abdomen and pelvis has been completed per renal protocol. Visualized portions of the lungs reveal them to be clear with no pleural effusions. There is a small to moderate sized hiatal hernia that appears to contain contrast in the superior portion of the stomach query diverticulum in this area. The liver is cirrhotic in appearance. 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 The spleen is within this hernia. The diaphragm appears to be intact without any diaphragmatic rupture. There is diffuse haziness throughout the mesentery with no obvious fluid collection in the pelvis. Patient has multiple stones in both renal tissues. There is an obstructing 1.9 cm stone in the proximal right ureter which appears to be high- grade. Both kidneys show significant atrophy. Has diffuse atherosclerosis of the distal aorta particularly at the bifurcation without any aneurysmal change. Small and large bowel did not show any obvious abnormalities. He has had previous abdominal wall surgery with umbilical hernia raphe and mesh grafting. 10/04/19 11:38 Patient is still having significant discomfort left flank. He has a rather large fellow. I will therefore repeat Dilaudid 1 mg IV for pain relief. He reports to be 5 out of 10 on my last assessment. I am going to speak to urology services at [facility] in [place] where he receives his care. Stone this large is not going to pass on his own. His kidneys show significant atrophy already. If this became infected with his cirrhosis of the liver he would be severely compromised. 10/04/19 13:29 White blood cell count is 10.0 with a 81% neutrophil count on the auto differential. Hemoglobin is slightly low at 12.2 with hematocrit of 40.2. Platelet count 317,000. PT is 11.4 with an INR of 1.05 slightly elevated. PTT is 26. Sodium is 142 with a potassium of 3.8. Chloride is 108 with a bicarb of 22. Anion gap is 15.8. BUN is 9 with a creatinine of 0.8. GFR is greater than 60. BUN/creatinine ratio is 11.3. Glucose is 131. Calcium is 8.4 slightly low. Total bilirubin is 1.4. AST is 62 slightly elevated with an ALT of 57 alk phos days is slightly elevated at 132. Total protein is 6.5 with an albumin fraction of 2.0 which is low.Lipase is pending. I did speak with Dr. Wilbert Elizondo at [facility] in [place] who is a interventional radiologist. 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 I then did speak with Dr. Mane from the department of surgery at [facility] and he is excepted care. The patient will require further imaging studies to see where the free air originated. 10/04/19 13:40: On repeat examination of the patient I identified that he is starting to show peritoneal signs in the left lower quadrant of the abdomen and most likely has a perforated diverticulitis as a source of his pain and free air. She will be given antibiotics Unasyn 3 g IV now. Unfortunately no ambulances are available to transport this patient to [place] for at least another 2 to 3 hours. None of the surrounding communities have ambulances to provide transport either. Patient spoke with his mother and brother who are willing to provide transport per private vehicle which I agree to at this time as he needs to get the [place] and potentially surgery as soon as possible. Pain is currently 5 out of 10 when he moves or coughs in the left lower quadrant. Of note left lower quadrant pain was not elicited on my initial examination. Family will be here to provide transport in approximately 45 minutes. 10/04/19 16:45 I have spoken with 1 call nurse at [facility] in [place] and relayed his COVID test to be negative. Also my last findings on examination after speaking with Dr. Mane. And was transferred by the family members and left the ER at 1530 hrs. Lactic acid was 1.9. Departure - Departure Time of Disposition: 15:29 Disposition: DC/Tfer to Acute Hospital 02 Condition: Fair Clinical Impression: Surgical abdomen Abdominal pain Qualifiers: Abdominal location: lower abdomen, unspecified Qualified Code(s): R10.30 - Lower abdominal pain, unspecified - Discharge Information *PRESCRIPTION DRUG MONITORING PROGRAM REVIEWED*: Not Applicable *COPY OF PRESCRIPTION DRUG MONITORING REPORT IN PATIENT AFSHIN: Not Applicable Referrals: Carlos Hoffmann Jr, MD [Primary Care Provider] - Forms: ED Department Discharge Additional Instructions: Travel to [facility] in [place] to the emergency department. Nothing to eat or drink in route to the hospital as you may well end up in surgery due to free air appreciated on CT scan of the abdomen done without contrast. The source of this free air initially is unclear. Over time you have developed left lower quadrant abdominal pain suggestive of diverticulitis with perforation. Sepsis Event Note (ED) - Evaluation Sepsis Screening Result: No Definite Risk - Focused Exam Vital Signs: Vital Signs Temp Pulse Resp BP Pulse Ox 10/04/19 10:11 36.1 C 105 H 18 120/76 95 - My Orders Last 24 Hours: My Active Orders 10/04/19 10:45 Dextrose 5%-Lactated Ringers 1,000 ml IV ASDIRECTED 10/04/19 14:07 Blood Glucose Check, Bedside [RC] ONETIME 10/04/19 14:23 EKG Documentation Completion [RC] STAT - Assessment/Plan Last 24 Hours: My Active Orders 10/04/19 10:45 Dextrose 5%-Lactated Ringers 1,000 ml IV ASDIRECTED 10/04/19 14:07 Blood Glucose Check, Bedside [RC] ONETIME 10/04/19 14:23 EKG Documentation Completion [RC] STAT
[2019-10-04] MEDS ORDERED: Dextrose 5%-Lactated Ringers 1,000 ML IV SCH (10:45)
--- NOTE | 2019-10-04 11:50 | CT ---
CT abdomen and pelvis Technique: Multiple axial sections were obtained from above the dome of the diaphragm inferiorly through the pubic symphysis. Intravenous and oral contrast not utilized. Comparison: Prior CT abdomen and pelvis exam of 08/06/19. Findings: Atelectasis is noted within both lung bases. Small hiatal hernia is noted. Small amount of scattered air noted within the abdominal cavity as well as within the mesentery around the liver. Free air noted beneath the right hemidiaphragm. Etiology for this air is not appreciated on this exam. Scattered body wall edema is noted. Fatty infiltration is seen within the liver. Spleen appears normal. Adrenal glands show no nodule. Pancreas shows no discrete abnormality. Cyst noted off the left kidney measuring 2.0 cm. Nonobstructing calculi are seen within both kidneys. Nonobstructing or partially obstructing stone is noted at the UPJ of the right kidney measuring 1.3 cm. This finding is fairly stable from previous exam. No other ureteral calculi are seen. Mild bowel wall thickening is noted within several small bowel loops. Surgical clips are seen within the anterior abdominal wall. No pelvic mass or adenopathy is seen. Small fat-containing inguinal hernias are noted. No free fluid is seen. Previous stomach surgery as noted. Appendix is seen and is normal in size. Bone window settings were reviewed which shows diffuse degenerative change throughout the spine. Impression: 1. Body wall edema which is an interval change from previous study. 2. Small amount of free air as well as air within the mesentery mostly around the liver. Free air is noted beneath the right hemidiaphragm. Etiology for this air is not appreciated on this exam. Please correlate if there is any clinical history that helps determine etiology. Nonvisualized bowel perforation is a strong possibility for this finding. 3. Areas of bowel wall thickening within small bowel most likely representing a nonspecific enteritis. 4. Stone within the UPJ measuring 1.3 cm. This is similar to previous exam. 5. Fatty infiltration within the liver and other findings as described above. Diagnostic code #5 This report was dictated in MDT
[2019-10-04] MEDS ORDERED: Ampicillin/Sulbactam Na 3 GM in Sodium Chloride 0.9% 100 ML IV ONE (14:03)
[2019-10-04] MEDS ORDERED: HYDROmorphone 0.5 MG/0.5 ML Syringe IVPUSH ONE (15:11)
== END 2019-10-04 15:30 ==
LOC: JD.ED 10:01
DX: G89.18 Other acute postprocedural pain (principal); R10.30 Lower abdominal pain, unspecified; R10.12 Left upper quadrant pain; I10 Essential (primary) hypertension; E66.9 Obesity, unspecified; Z68.38 Body mass index [BMI] 38.0-38.9, adult; R00.0 Tachycardia, unspecified; Z20.828 Contact with and (suspected) exposure to other viral communicable diseases; F17.210 Nicotine dependence, cigarettes, uncomplicated; Z90.49 Acquired absence of other specified parts of digestive tract; Z98.84 Bariatric surgery status; Z91.018 Allergy to other foods; Z79.899 Other long term (current) drug therapy
CPT/HCPCS: 36415; 74176; 80053; 81001; 83605; 83690; 85025; 85610; 85730; 87040; 87635; 93005; 96365; 96375; 96376; 99285; J0295; J1170; J2765; J7050; J7121; U0002

== ENCOUNTER 2020-01-25 10:16 | Emergency (ER) | payer MEDICAID, OTHER ==
[2020-01-25] MEDS ORDERED: Sodium Chloride 0.9% 1,000 ML IV SCH (10:45)
--- NOTE | 2020-01-25 10:48 | EDM.PDOC ---
ED HPI GENERAL MEDICAL PROBLEM - General Chief Complaint: Gastrointestinal Problem Stated Complaint: RECTAL BLEEDING Time Seen by Provider: 01/25/20 10:42 Source of Information: Reports: Patient History Limitations: Reports: No Limitations - History of Present Illness INITIAL COMMENTS - FREE TEXT/NARRATIVE: 49-year-old male presents to the ED with an acute gastrointestinal hemorrhage. Patient has a history of peptic ulcer disease and was admitted to hospital in [place] for a month in the last year due to elevated ammonia levels from cirrhosis of the liver. Cirrhosis of the liver secondary to alcoholism. It is unclear whether or not he has esophageal varices. He dates he was vomiting up some bright red blood this morning as well x3. He states yesterday afternoon a bout 1400 hrs. he experienced a bright red blood loss per rectum. He was fine then until this morning when the bleeding started again around 0700 hrs. and he states that he is been going almost constantly since that time. Blood in the commode is fairly bright in color and definitely melena. Patient appears very pallid in appearance. He has no problems receiving a blood transfusion. He states he last drank rum 2 days ago. Patient is not currently taking any blood thinners. He states he takes mostly Tylenol for pain. Occasionally he has been using meloxicam tablets as well. He was told last time by the GI doctor not to use ibuprofen or Motrin anymore. Onset: Sudden Onset Date: 01/24/20 Onset Time: 14:00 (1 bright red stool yesterday afternoon and several again this morning) Duration: Hour(s):, Getting Worse Location: Reports: Abdomen (Acute gastrointestinal hemorrhage) Quality: Reports: Other Severity: Severe (Recurrent bleeding per rectum.) Improves with: Reports: None Worsens with: Reports: None Context: Denies: Activity, Exercise, Lifting, Sick Contact, Trauma Associated Symptoms: Reports: Cough, Loss of Appetite, Malaise, Shortness of Breath, Weakness. 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 Generalized Pain Score (Numeric/FACES): 3 - Related Data Allergies Allergy/AdvReac Type Severity Reaction Status Date / Time peppermint Allergy Severe Airway Verified 01/25/20 10:38 Tightness Home Meds: Home Meds Cyanocobalamin/Folic AC/Vit B6 [Folbee] 1 tab PO DAILY 10/04/19 [History] Diclofenac Sodium [Diclo Gel] 2 gm TRDERM BID 10/04/19 [History] Famotidine 20 mg PO DAILY 10/04/19 [History] Famotidine [Pepcid] 20 mg PO BID 10/04/19 [History] Fluticasone Furoate [Flonase Sensimist] 2 spray RAY BID 10/04/19 [History] Ketoconazole/Hydrocortisone [Hydrocort 2.5%-Ketoconazole 2%] 1 dose TOP BID 10/04/19 [History] Lactulose [Chronulac] 15 ml PO BID 10/04/19 [History] Loperamide [Imodium] 2 mg PO Q4HR 10/04/19 [History] Losartan [Cozaar] 100 mg PO DAILY 10/04/19 [History] Melatonin 3 mg PO BEDTIME 10/04/19 [History] Meloxicam 7.5 mg PO DAILY 10/04/19 [History] Metoclopramide [Reglan] 5 mg PO TID 10/04/19 [History] Mirtazapine 7.5 mg PO DAILY 10/04/19 [History] Ondansetron [Zofran ODT] 4 mg PO TID 10/04/19 [History] Pantoprazole Sodium [Protonix] 20 mg PO DAILY 10/04/19 [History] Potassium Chloride [Klor-Con M20] 20 meq PO DAILY 10/04/19 [History] Rifaximin [Xifaxan] 1,100 mg PO BID 10/04/19 [History] Tamsulosin [Flomax] 0.4 mg PO DAILY 10/04/19 [History] Past Medical History Cardiovascular History: Reports: Hypertension Gastrointestinal History: Reports: Cholelithiasis, Chronic Diarrhea (Secondary to be on on lactulose.), Cirrhosis (Lactulose. Diagnosed with cirrhosis of the liver approximately a month ago. He finished alcohol treatment September 28), Gastritis (Alcohol-related), GERD, GI Bleed (Serious GI bleed occurred in July of this year. He reports he was in hospital for a nearly a month and was transferred to [place] I believe for alcohol treatment.), Other (See Below) Other Gastrointestinal History: liver fx Musculoskeletal History: Reports: Back Pain, Chronic Other Musculoskeletal History: Ankylosing Spondylitis Endocrine/Metabolic History: Reports: Obesity/BMI 30+ - Infectious Disease History Infectious Disease History: Reports: Pertussis (Whooping Cough) - Past Surgical History GI Surgical History: Reports: Bariatric Procedure, Cholecystectomy - History Comment History Comment: And was in alcohol rehab up until a week ago. Social & Family History - Family History Family Medical History: Noncontributory - Caffeine Use Caffeine Use: Reports: Coffee - Alcohol Use Alcohol Use History: Yes Days Per Week of Alcohol Use: 5 (He states he last drank some rum 2 days ago.) - Living Situation & Occupation Living situation: Reports: Single, with Family Occupation: Employed ([employer]) ED ROS GENERAL - Review of Systems Review Of Systems: See Below Constitutional: Reports: Malaise, Weakness, Fatigue, Decreased Appetite. Denies: Fever, Chills, Weight Loss HEENT: Reports: No Symptoms Respiratory: Reports: Shortness of Breath Cardiovascular: Reports: Dyspnea on Exertion. Denies: Chest Pain, Blood Pressur e Problem, Claudication, Edema, Lightheadedness, Orthopnea Endocrine: Reports: Fatigue GI/Abdominal: Reports: Bloody Stool (Started bleeding per rectum yesterday afternoon and then seem to be okay overnight but started again at 0700 hrs. this morning. He states he is gone 12 more than 20 times since that time.), Nausea. Denies: Abdominal Pain, Anorexia : Reports: Frequency, Other Musculoskeletal: Reports: Back Pain (Nocturia x2 or 3.), Joint Pain (Knees hips neck at times) Skin: Reports: Pallor (Wheezes easily.), Bruising Neurological: Reports: Dizziness, Weakness. Denies: Confusion Psychiatric: Reports: Anxiety, Other (History of chronic substance abuse alcohol.) Hematologic/Lymphatic: Reports: No Symptoms Immunologic: Reports: No Symptoms ED EXAM, GI/ABD - Physical Exam Exam: See Below Exam Limited By: No Limitations General Appearance: Alert, WD/WN, Moderate Distress, Other (Anxious. He is very pallid in color. Temperature is 36.1. Heart rate 123 at the bedside respiratory is 22 with O2 sats of 98% room air BP 96/65.) Eyes: Right: Pale Conjunctiva (Bilateral marked pallor suggesting hemoglobin less than 8 clinically.) Throat/Mouth: Normal Inspection, Normal Lips, Normal Oropharynx, Other (Tongue and lips are dry.) Head: Atraumatic, Normocephalic, Other (No outward signs of head or neck trauma) Neck: Normal Inspection, Supple, Non-Tender, Full Range of Motion. No: Carotid Bruit, Lymphadenopathy (L), Lymphadenopathy (R) Respiratory/Chest: Lungs Clear ( at the bedside mostly due to anxiety.), Normal Breath Sounds, No Accessory Muscle Use, Respiratory Distress (Mild tachypnea). No: Rales, Rhonchi, Wheezing Cardiovascular: Normal Peripheral Pulses, No Edema, No Murmur, No Rub, Tachycardia (Tachycardia at rest) GI/Abdominal Exam: Soft, Pelvis Stable, Abnormal Bowel Sounds (Diffusely hyperactive bowel sounds.), Other (Patient has a mass palpable in the midline which I believe to be the left lobe of the liver. He has a well-healed midline laparotomy wound he reports she had a ventral hernia repair in this area.) Back Exam: No: CVA Tenderness (L), CVA Tenderness (R) Extremities: Normal Inspection, Normal Range of Motion, Non-Tender, No Pedal Edema Neurological: Alert, Oriented, CN II-XII Intact, Normal Cognition Psychiatric: Anxious Skin Exam: Warm, Dry, Intact, Pallor (Marked pallor.) #1 Interpretation EKG Date: 01/25/20 Time: 10:48 Rhythm: Other (Sinus tachycardia) Rate (Beats/Min): 125 (Occasional PVC) [place]: Normal P-Wave: Present QRS: Other (Early R wave transition consider septal hypertrophy pattern.) ST-T: Other (Diffuse mild ST segment depression V2 to V6 also leads to 3 and aVF. T wave flattening in aVL nonspecific finding decreased voltage limb leads) QT: Prolonged (Mildly prolonged) EKG Interpretation Comments: Abnormal ECG Course - Vital Signs Last Recorded V/S: Last Vital Signs Temp 36.2 C 01/25/20 13:23 Pulse 118 H 01/25/20 13:23 Resp 25 H 01/25/20 13:23 BP 116/78 01/25/20 13:23 Pulse Ox 93 L 01/25/20 13:23 - Orders/Labs/Meds Orders: Active Orders 24 hr Category Date Time Status EKG Documentation Completion [RC] STAT Care 01/25/20 10:41 Active Chest 1V Frontal [CR] Stat Exams 01/25/20 10:41 Taken DRUG SCREEN, URINE [URCHEM] Stat Lab 01/25/20 10:44 Ordered FRESH FROZEN PLASMA [BBK] Stat Lab 01/25/20 10:28 Results PACKED CELLS [RED BLOOD CELLS LP] [BBK] Stat Lab 01/25/20 10:28 Results PATIENT RETYPE [BBK] Routine Lab 01/25/20 11:55 Ordered TYPE AND SCREEN [BBK] Stat Lab 01/25/20 10:28 Results Octreotide [SandoSTATIN] 500 mcg Med 01/25/20 12:30 Active Sodium Chloride 0.9% [Normal Saline] 499 ml IV Q10H Potassium Chloride [KCl 10 MEQ in Water 100 ML] 10 meq Med 01/25/20 11:30 Active Premix Bag 1 bag IV Q1H Sodium Chloride 0.9% [Normal Saline] 1,000 ml Med 01/25/20 10:45 Active IV ASDIRECTED Transfuse Fresh Frozen Plasma [COMM] Stat Oth 01/25/20 11:47 Ordered Transfuse RBC [Transfuse Red Blood Cells] [COMM] Stat Oth 01/25/20 11:47 Ordered Medication Orders Sodium Chloride (Normal Saline) 1,000 mls @ 999 mls/hr IV ASDIRECTED DAVID Last Admin: 01/25/20 10:58 Dose: 999 mls/hr Documented by: SNEHA Potassium Chloride 10 meq/ (Premix) 100 mls @ 100 mls/hr IV Q1H REPLACED BY [facility] Stop: 01/25/20 14:29 Last Admin: 01/25/20 13:24 Dose: 100 mls/hr Documented by: Infusion: 01/25/20 13:13 Dose: 100 mls/hr Documented by: Admin: 01/25/20 12:13 Dose: 100 mls/hr Documented by: NAMITA Octreotide Acetate 500 mcg/ (Sodium Chloride) 500 mls @ 50 mls/hr IV Q10H REPLACED BY [facility] Last Admin: 01/25/20 13:34 Dose: 50 mcg/hr, 50 mls/hr Documented by: NAMITA Labs: Laboratory Tests 01/25/20 01/25/20 01/25/20 Range/Units 10:28 10:28 10:28 WBC 13.30 H (4.23-9.07) K/mm3 RBC 3.46 L (4.63-6.08) M/mm3 Hgb 10.7 L D (13.7-17.5) gm/dl Hct 34.2 L (40.1-51.0) % MCV 98.8 H D (79.0-92.2) fl MCH 30.9 (25.7-32.2) pg MCHC 31.3 L (32.2-35.5) g/dl RDW Std Deviation 67.5 H (35.1-43.9) fL Plt Count 169 D (163-337) K/mm3 MPV 10.9 (9.4-12.3) fl Neut % (Auto) 68.5 H (34.0-67.9) % Lymph % (Auto) 22.2 (21.8-53.1) % [place] % (Auto) 8.7 (5.3-12.2) % Eos % (Auto) 0.1 L (0.8-7.0) Baso % (Auto) 0.2 (0.1-1.2) % Neut # (Auto) 9.11 H (1.78-5.38) K/mm3 Lymph # (Auto) 2.95 (1.32-3.57) K/mm3 [place] # (Auto) 1.16 H (0.30-0.82) K/mm3 Eos # (Auto) 0.01 L (0.04-0.54) K/mm3 Baso # (Auto) 0.03 (0.01-0.08) K/mm3 Manual Slide Review Abnormal smear PT 12.4 H (9.7-11.7) SECONDS INR 1.16 APTT 25 (22-31) SECONDS Sodium 140 (136-145) mEq/L Potassium 2.4 L* (3.5-5.1) mEq/L Chloride 101 (98-107) mEq/L Carbon Dioxide 15 L (21-32) mEq/L Anion Gap 26.4 H (5-15) BUN 34 H D (7-18) mg/dL Creatinine 1.4 H (0.7-1.3) mg/dL Est Cr Clr Drug Dosing 64.45 mL/min Estimated GFR (MDRD) 53 (>60) mL/min BUN/Creatinine Ratio 24.3 H (14-18) Glucose 159 H (74-106) mg/dL Calcium 8.6 (8.5-10.1) mg/dL Magnesium 1.2 L (1.8-2.4) mg/dl Total Bilirubin 1.0 (0.2-1.0) mg/dL GGT 149 H (15-85) U/L AST 48 H (15-37) U/L ALT 59 (16-63) U/L Alkaline Phosphatase 126 H (46-116) U/L Ammonia (11-32) umol/L Troponin I < 0.017 (0.00-0.056) ng/mL C-Reactive Protein 1.5 H* (<1.0) mg/dL NT-Pro-B Natriuret Pep (0-125) pg/mL Total Protein 6.8 (6.4-8.2) g/dl Albumin 2.6 L (3.4-5.0) g/dl Globulin 4.2 gm/dL Albumin/Globulin Ratio 0.6 L (1-2) Ethyl Alcohol 0.00 (0.00) gm% Ketones (0.0-0.3) mM SARS-CoV-2 RNA (KANDI) (NEGATIVE) Blood Type Gel Antibody Screen Crossmatch 01/25/20 01/25/20 01/25/20 Range/Units 10:28 10:28 10:28 WBC (4.23-9.07) K/mm3 RBC (4.63-6.08) M/mm3 Hgb (13.7-17.5) gm/dl Hct (40.1-51.0) % MCV (79.0-92.2) fl MCH (25.7-32.2) pg MCHC (32.2-35.5) g/dl RDW Std Deviation (35.1-43.9) fL Plt Count (163-337) K/mm3 MPV (9.4-12.3) fl Neut % (Auto) (34.0-67.9) % Lymph % (Auto) (21.8-53.1) % [place] % (Auto) (5.3-12.2) % Eos % (Auto) (0.8-7.0) Baso % (Auto) (0.1-1.2) % Neut # (Auto) (1.78-5.38) K/mm3 Lymph # (Auto) (1.32-3.57) K/mm3 [place] # (Auto) (0.30-0.82) K/mm3 Eos # (Auto) (0.04-0.54) K/mm3 Baso # (Auto) (0.01-0.08) K/mm3 Manual Slide Review PT (9.7-11.7) SECONDS INR APTT (22-31) SECONDS Sodium (136-145) mEq/L Potassium (3.5-5.1) mEq/L Chloride (98-107) mEq/L Carbon Dioxide (21-32) mEq/L Anion Gap (5-15) BUN (7-18) mg/dL Creatinine (0.7-1.3) mg/dL Est Cr Clr Drug Dosing mL/min Estimated GFR (MDRD) (>60) mL/min BUN/Creatinine Ratio (14-18) Glucose (74-106) mg/dL Calcium (8.5-10.1) mg/dL Magnesium (1.8-2.4) mg/dl Total Bilirubin (0.2-1.0) mg/dL GGT (15-85) U/L AST (15-37) U/L ALT (16-63) U/L Alkaline Phosphatase (46-116) U/L Ammonia (11-32) umol/L Troponin I (0.00-0.056) ng/mL C-Reactive Protein (<1.0) mg/dL NT-Pro-B Natriuret Pep 192 H (0-125) pg/mL Total Protein (6.4-8.2) g/dl Albumin (3.4-5.0) g/dl Globulin gm/dL Albumin/Globulin Ratio (1-2) Ethyl Alcohol (0.00) gm% Ketones 0.68 (0.0-0.3) mM SARS-CoV-2 RNA (KANDI) (NEGATIVE) Blood Type B POSITIVE Gel Antibody Screen Negative Crossmatch See Detail 01/25/20 01/25/20 Range/Units 11:04 11:54 WBC (4.23-9.07) K/mm3 RBC (4.63-6.08) M/mm3 Hgb (13.7-17.5) gm/dl Hct (40.1-51.0) % MCV (79.0-92.2) fl MCH (25.7-32.2) pg MCHC (32.2-35.5) g/dl RDW Std Deviation (35.1-43.9) fL Plt Count (163-337) K/mm3 MPV (9.4-12.3) fl Neut % (Auto) (34.0-67.9) % Lymph % (Auto) (21.8-53.1) % [place] % (Auto) (5.3-12.2) % Eos % (Auto) (0.8-7.0) Baso % (Auto) (0.1-1.2) % Neut # (Auto) (1.78-5.38) K/mm3 Lymph # (Auto) (1.32-3.57) K/mm3 [place] # (Auto) (0.30-0.82) K/mm3 Eos # (Auto) (0.04-0.54) K/mm3 Baso # (Auto) (0.01-0.08) K/mm3 Manual Slide Review PT (9.7-11.7) SECONDS INR APTT (22-31) SECONDS Sodium (136-145) mEq/L Potassium (3.5-5.1) mEq/L Chloride (98-107) mEq/L Carbon Dioxide (21-32) mEq/L Anion Gap (5-15) BUN (7-18) mg/dL Creatinine (0.7-1.3) mg/dL Est Cr Clr Drug Dosing mL/min Estimated GFR (MDRD) (>60) mL/min BUN/Creatinine Ratio (14-18) Glucose (74-106) mg/dL Calcium (8.5-10.1) mg/dL Magnesium (1.8-2.4) mg/dl Total Bilirubin (0.2-1.0) mg/dL GGT (15-85) U/L AST (15-37) U/L ALT (16-63) U/L Alkaline Phosphatase (46-116) U/L Ammonia 171 H (11-32) umol/L Troponin I (0.00-0.056) ng/mL C-Reactive Protein (<1.0) mg/dL NT-Pro-B Natriuret Pep (0-125) pg/mL Total Protein (6.4-8.2) g/dl Albumin (3.4-5.0) g/dl Globulin gm/dL Albumin/Globulin Ratio (1-2) Ethyl Alcohol (0.00) gm% Ketones (0.0-0.3) mM SARS-CoV-2 RNA (KANDI) Negative (NEGATIVE) Blood Type Gel Antibody Screen Crossmatch Meds: Medications Generic Name Dose Route Start Last Admin Trade Name Freq PRN Reason Stop Dose Admin Sodium Chloride 1,000 mls @ 999 mls/hr 01/25/20 10:45 01/25/20 10:58 Normal Saline IV 999 mls/hr ASDIRECTED DAVID Administration Potassium Chloride 10 meq/ 100 mls @ 100 mls/hr 01/25/20 11:30 01/25/20 13:24 Premix IV 01/25/20 14:29 100 mls/hr Q1H DAVID Administration Octreotide Acetate 500 mcg/ 500 mls @ 50 mls/hr 01/25/20 12:30 01/25/20 13:34 Sodium Chloride IV 50 mcg/hr Q10H DAVID 50 mls/hr Administration 50 MCG/HR Discontinued Medications Generic Name Dose Route Start Last Admin Trade Name Aronq PRN Reason Stop Dose Admin Hydromorphone HCl 0.5 mg 01/25/20 13:17 01/25/20 13:26 Dilaudid IVPUSH 01/25/20 13:18 0.5 mg ONETIME ONE Administration Octreotide Acetate 50 mcg 01/25/20 13:15 01/25/20 13:30 Octreotide IV 01/25/20 13:16 50 mcg ONETIME ONE Administration Ondansetron HCl 4 mg 01/25/20 11:16 01/25/20 12:13 Zofran IVPUSH 01/25/20 11:17 4 mg ONETIME ONE Administration Tranexamic Acid 1,000 mg 01/25/20 10:40 01/25/20 10:58 Cyklokapron IVPUSH 01/25/20 10:41 1,000 mg ONETIME ONE Administration - Radiology Interpretation Free Text/Narrative:: 49-year-old male with known cirrhosis of the liver still actively drinking alcohol presents to the ED with acute lower GI hemorrhage. He has a history of peptic ulcer disease requiring blood transfusions in the past. He denies any vomiting of blood. First bloody stool per rectum was yesterday afternoon about 1400 hrs. then he was okay until about 0700 hrs. this morning when he has been going most every 15 minutes passing clots and bright red blood. Patient does appear quite pallid in color. Initial blood pressures recorded at 96 over D5. It is currently 92/59. Heart rate 125 at the bedside. Patient will be crossmatched for 2 units of packed cells and a unit of fresh frozen plasma. He will be given a gram of tranexamic acid. Unclear whether he has any history of esophageal varices but does not appear to be experiencing any hematemesis. IV normal saline to be run at open. Second large-bore IV to be started. Routine labs to be collected including liver function and GGT and a serum ammonia for baseline as apparently he has a history of significant hepatic encephalopathy in the past. Dates he last drank some rum 2 days ago. - Re-Assessments/Exams Free Text/Narrative Re-Assessment/Exam: 01/25/20 11:17 show hemoglobin was reportedly 10.3. It will not stay that way for long. Patient is complaining of nausea at this time will receive Zofran 4 mg IV. Lab also called over indicate his potassium is 2.4. He will have K riders started q. hourly x3 hours of 10 mEq each. Is going to require admission to hospital most likely in [place]. COVID-19 screen will therefore be done. 01/25/20 11:29 pressure is improved to 116/74 with a heart rate of 115. O2 sats 95% on room air 01/25/20 11:45 audible chest x-ray completed. Lungs are clear with no consolidation or infiltrates. Pleural space is unremarkable no pneumothorax no pleural effusions. Heart mediastinum are normal. No cardiomegaly White blood count is elevated at 13.30 with auto differential showing 68.5% neutrophils. Hemoglobin is 10.7 with hematocrit of 34.2. MCV is elevated at 98.8. Platelet count is 169,000. The slide reveals 1+ anisocytosis and 1+ macrocytes. PT is 12.4 with an INR of 1.16. PTT is 25. Sodium 140 with a potassium reported at 2.4. Chloride 101 with a bicarb of 15. Anion gap is markedly elevated at 26.4. BUN is 34 with a creatinine of 1.4. This raises the possibility of an upper GI bleed due to the elevated BUN. BUN/creatinine ratio is 24.3. Glucose 159. Calcium 8.6 magnesium low at 1.2. Total bilirubin is 1.0 GGT is elevated 149. AST is 48 and ALT is 59. Alk phosphatase is 126. Serum ammonia level is elevated at 171. Troponin is less than 0.017. C-reactive protein is 1.5 BNP is 192 minimally elevated. Total protein 6.8 with an albumin fraction of 2.6. Blood alcohol is 0.0. Elevated anion gap is likely due to alcohol-induced ketosis. Serum ketones will be ordered. Plan will be to transfuse 2 units of blood as soon as they become available as well as a unit of fresh frozen plasma and tentatively transfer him to [facility] in [place] due to the possibility of bleeding from esophageal varices. 01/25/20 12:00: Have contacted [facility] in [place] and their bed capacity is very limited at this point time. We will discuss case with unit secretary once they become available to have an accepting physician. Blood pressure is stabilized at 115/70. Heart rate is currently 123 with O2 sats of 95% room air. 01/25/20 12:26 I have spoken with Dr Paetl through the ED at [facility] in [facility] and he is excepted care. We discussed the option of treating the patient with octreotide and we agreed to start him on octreotide 50 mcg IV bolus then 50 mcg/h drip. Patient will be transferred to [facility] per ground ambulance. The plan will be to give him a unit of blood enroute and start the second unit before he reaches the ED so that it will not be wasted. He also received a unit of fresh frozen plasma. 01/25/20 12:49 Blood pressure is currently 114/73 heart rate is up to 119 O2 sats 94% room air. 01/25/20 13:13 19 screen is negative. Serum ketones are elevated as anticipated at 0.68. Blood pressure is 119/81. Heart rate is up to 118. And is requesting analgesia for abdominal cramping pain. We will give Dilaudid 0.5 mg IV. She reports no further bleeding in the last 45 minutes per rectum. 01/25/20 13:44 paramedics are here now to provide transport to [place] for this patient. He has had no further bleeding per rectum for the last hour. Departure - Departure Time of Disposition: 13:43 Disposition: DC/Tfer to Acute Hospital 02 Condition: Serious Clinical Impression: Upper gastrointestinal hemorrhage, Chronic alcoholism, Hypokalemia, Metabolic acidosis, Alcoholic ketosis Cirrhosis of liver without ascites Qualifiers: Hepatic cirrhosis type: alcoholic cirrhosis Qualified Code(s): K70.30 - Alcoholic cirrhosis of liver without ascites - Discharge Information *PRESCRIPTION DRUG MONITORING PROGRAM REVIEWED*: Not Applicable *COPY OF PRESCRIPTION DRUG MONITORING REPORT IN PATIENT AFSHIN: Not Applicable Referrals: PCP,None [Primary Care Provider] - Forms: ED Department Discharge Sepsis Event Note (ED) - Evaluation Sepsis Screening Result: No Definite Risk - Focused Exam Vital Signs: Vital Signs Temp Temp Pulse Resp BP Pulse Ox 01/25/20 13:23 36.2 C 118 H 25 H 116/78 93 L 01/25/20 10:31 36.1 C 123 H 22 H 96/65 98 - My Orders Last 24 Hours: My Active Orders 01/25/20 10:28 FRESH FROZEN PLASMA [BBK] Stat PACKED CELLS [RED BLOOD CELLS LP] [BBK] Stat TYPE AND SCREEN [BBK] Stat 01/25/20 10:41 EKG Documentation Completion [RC] STAT Chest 1V Frontal [CR] Stat 01/25/20 10:44 DRUG SCREEN, URINE [URCHEM] Stat 01/25/20 10:45 Sodium Chloride 0.9% [Normal Saline] 1,000 ml IV ASDIRECTED 01/25/20 11:30 Potassium Chloride [KCl 10 MEQ in Water 100 ML] 10 meq Premix Bag 1 bag IV Q1H 01/25/20 11:47 Transfuse Fresh Frozen Plasma [COMM] Stat Transfuse RBC [Transfuse Red Blood Cells] [COMM] Stat 01/25/20 11:55 PATIENT RETYPE [BBK] Routine 01/25/20 12:30 Octreotide [SandoSTATIN] 500 mcg Sodium Chloride 0.9% [Normal Saline] 499 ml IV Q10H - Assessment/Plan Last 24 Hours: My Active Orders 01/25/20 10:28 FRESH FROZEN PLASMA [BBK] Stat PACKED CELLS [RED BLOOD CELLS LP] [BBK] Stat TYPE AND SCREEN [BBK] Stat 01/25/20 10:41 EKG Documentation Completion [RC] STAT Chest 1V Frontal [CR] Stat 01/25/20 10:44 DRUG SCREEN, URINE [URCHEM] Stat 01/25/20 10:45 Sodium Chloride 0.9% [Normal Saline] 1,000 ml IV ASDIRECTED 01/25/20 11:30 Potassium Chloride [KCl 10 MEQ in Water 100 ML] 10 meq Premix Bag 1 bag IV Q1H 01/25/20 11:47 Transfuse Fresh Frozen Plasma [COMM] Stat Transfuse RBC [Transfuse Red Blood Cells] [COMM] Stat 01/25/20 11:55 PATIENT RETYPE [BBK] Routine 01/25/20 12:30 Octreotide [SandoSTATIN] 500 mcg Sodium Chloride 0.9% [Normal Saline] 499 ml IV Q10H
[2020-01-25] MEDS ORDERED: Ondansetron 4 MG/2 ML SDV IVPUSH ONE (11:16)
[2020-01-25] MEDS: Potassium Chloride 10 MEQ in Premix Bag 1 BAG IV SCH ×2 (12:13→13:24)
[2020-01-25] MEDS ORDERED: Octreotide 50 MCG/1 ML Amp IVPUSH ONE (12:26)
[2020-01-25] MEDS ORDERED: Octreotide 500 MCG in Sodium Chloride 0.9% 499 ML IV SCH (12:30)
[2020-01-25] MEDS ORDERED: HYDROmorphone 0.5 MG/0.5 ML Syringe IVPUSH ONE (13:17)
[2020-01-25 13:46] VITALS: BP 117/83; PULSE 97
== END 2020-01-25 13:50 ==
LOC: JD.ED 10:16
DX: K92.2 Gastrointestinal hemorrhage, unspecified (principal); F10.20 Alcohol dependence, uncomplicated; E87.6 Hypokalemia; E87.2 Acidosis; E88.89 Other specified metabolic disorders; K70.30 Alcoholic cirrhosis of liver without ascites; K21.9 Gastro-esophageal reflux disease without esophagitis; E66.9 Obesity, unspecified; Z91.018 Allergy to other foods; Z79.899 Other long term (current) drug therapy; Z20.828 Contact with and (suspected) exposure to other viral communicable diseases
CPT/HCPCS: 36415; 36430; 71045; 80053; 80307; 82009; 82140; 82977; 83735; 83880; 84484; 85025; 85610; 85730; 86140; 86850; 86900; 86901; 86922; 87635; 93005; 96365; 96366; 96368; 96375; 96376; 99285; J1170; J2354; J2405; J3480; J7030; J7040; P9016; P9017; U0002

== ENCOUNTER 2021-07-31 14:40 | Emergency (ER) | payer MEDICAID ==
[2021-07-31] MEDS ORDERED: Iopamidol 612 MG/ML 150 ML Bottle IVPUSH ONE (15:10)
[2021-07-31] MEDS ORDERED: Sodium Chloride 0.9% 10 ML Syringe FLUSH ONE (15:10)
[2021-07-31] MEDS: Sodium Chloride 0.9% 100 ML IV SCH ×2 (15:14→15:15)
[2021-07-31] MEDS ORDERED: Potassium Chloride 10 MEQ in Premix Bag 1 BAG IV ONE (15:38)
[2021-08-01 07:09] VITALS: BP 96/65; PULSE 44
== END 2021-07-31 17:13 ==
LOC: JD.ED 14:40
DX: S12.490A Other displaced fracture of fifth cervical vertebra, initial encounter for closed fracture (principal); S12.690A Other displaced fracture of seventh cervical vertebra, initial encounter for closed fracture; T68.XXXA Hypothermia, initial encounter; E87.6 Hypokalemia; I10 Essential (primary) hypertension; K21.9 Gastro-esophageal reflux disease without esophagitis; E66.9 Obesity, unspecified; Z68.31 Body mass index [BMI] 31.0-31.9, adult; Z91.048 Other nonmedicinal substance allergy status; Z79.899 Other long term (current) drug therapy; W10.9XXA Fall (on) (from) unspecified stairs and steps, initial encounter
CPT/HCPCS: 70450; 71260; 72125; 72128; 72131; 74177; 80053; 80306; 80307; 81001; 82150; 82553; 83605; 83874; 84484; 85025; 85610; 86850; 86900; 86901; 93005; 96365; 99285; J3480; J3490; Q9967; 36415